=== PATIENT | female | born 1945 | race Caucasian/White ===

== ENCOUNTER 2017-01-04 07:15 | Inpatient (IN) | payer MEDICARE, OTHER ==
[~2017-01-04] VITALS: Ht 152.4 cm; Wt 51.0 kg
[~2017-01-04 07:15] MED LIST: ACID1TAB14 PO; AMLO5TAB4 PO; AUG875 PO; Acetaminophen PO; BENA10TA48 PO; ESCI10TA PO; FAMO-95 PO; FOLI-49 PO; GLIP5TAB13 PO; HYDR-762 PO; METF500T4 PO; METO-429 PO; MULT-761 PO; OLAN2.5T4 PO; THIA100T10 PO; TRAM50TA2 NGT
[2017-01-04] MEDS ORDERED: ONDANSETRON 4 MG INJ IV STA (07:52)
[2017-01-04] MEDS ORDERED: HYDROmorphONE 1 MG/ML SYG IV STA (07:52)
[2017-01-04] MEDS ORDERED: METF1000 PO (07:55)
[2017-01-04] MEDS ORDERED: DOCU-159 PO (07:57)
[2017-01-04] MEDS ORDERED: ASPI-664 PO (07:57)
[2017-01-04] MEDS ORDERED: CHOL100062 PO (07:57)
[2017-01-04] MEDS ORDERED: BISA10SU55 RC (07:58)
[2017-01-04] MEDS ORDERED: IBUP400T22 PO (07:58)
[2017-01-04] MEDS ORDERED: MAGN400T27 PO (07:59)
[2017-01-04] MEDS ORDERED: MAGN400O4 PO (08:00)
[2017-01-04] MEDS ORDERED: MEMA10TA16 PO (08:00)
[2017-01-04] MEDS ORDERED: CALC1TAB30 PO (08:01)
[2017-01-04] MEDS ORDERED: PANT40TA3 PO (08:01)
[2017-01-04] MEDS ORDERED: RISP2TAB3 PO (08:02)
[2017-01-04] MEDS ORDERED: PARO20TA58 PO (08:02)
[2017-01-04] MEDS ORDERED: RISP1TAB3 PO (08:02)
[2017-01-04] MEDS ORDERED: LINA5TAB PO (08:03)
[2017-01-04] MEDS ORDERED: ACET-2047 PO (08:03)
[2017-01-04] MEDS ORDERED: LORAZEPAM 2 MG INJ ONE (08:18)
[2017-01-04 08:26] LABS: ADD SCAN DIFF NO
[2017-01-04 08:30] LABS: BASOPHIL # 0.1 10^3/ul (0.0-0.1); EOSINOPHILS # 0.3 10^3/ul (0.0-0.5); HEMATOCRIT 32.3 % (37.0-47.0); LYMPHOCYTES # 2.6 10^3/ul (0.8-2.9); LYMPHOCYTES % 24.5 % (15.0-51.0); MEAN CORPUSCULAR HEMOGLOBIN 31.8 pg (29.0-33.0); MEAN CORPUSCULAR HGB CONC 34.1 g/dl (32.0-37.0); MEAN CORPUSCULAR VOLUME 93.4 fl (82.0-101.0); MONOCYTE # 1.2 10^3/ul (0.3-0.9); MONOCYTES % 10.9 % (0.0-11.0); NEUTROPHIL # 6.4 10^3/ul (1.6-7.5); NEUTROPHILS % 60.4 % (39.0-77.0); PLATELET COUNT 325 10^3/UL (140-415); RED BLOOD COUNT 3.46 10^6/ul (4.20-5.40); RED CELL DISTRIBUTION WIDTH 13.4 % (11.5-14.5); WHITE BLOOD COUNT 10.6 10^3/ul (4.8-10.8)
[2017-01-04] MEDS ORDERED: LORAZEPAM 2 MG INJ IV ONE ×2 (08:30→11:30)
--- NOTE | 2017-01-04 08:52 | RADRPT ---
PROCEDURE: XR Left foot. CLINICAL INDICATION: Left foot pain, swelling, trauma, wounds TECHNIQUE: Three views of the left foot were obtained. COMPARISON: No prior studies are available for comparison. FINDINGS: The bones are osteopenic. There is no definite acute fracture. There is diffuse soft tissue swelli ng. There are vascular calcifications. Nonspecific linear density along the lateral aspect of the third digit may be within or overlying th e soft tissues. IMPRESSION: 1. Diffuse osteopenia and soft tissue swelling. 2. No definite radiographic evidence of acute fracture or osteomyelitis though there is concern for osteomyelitis MRI is recommended for further evaluation. 3. Nonspecific 6 mm linear density projecting between the third and fourth toes may be a within or overlying the soft tissues. RPTAT: UU .Gerson Ware MD, Date Time Electronically viewed and signed by .Gerson Ware MD, on 01/04/2017 08:52 .K/
[2017-01-04 08:53] LABS: INR 0.97; PROTIME 12.9 Sec (12.2-14.2)
[2017-01-04 08:54] LABS: PARTIAL THROMBOPLASTIN TIME 30.3 Sec (25.0-35.0)
[2017-01-04 09:06] LABS: ALBUMIN 5.1 g/dl (3.3-4.9); ALBUMIN/GLOBULIN RATIO 1.45; BILIRUBIN,INDIRECT 0.4 mg/dl (0-1.1); BILIRUBIN,TOTAL 0.4 mg/dl (0.2-1.3); CALCIUM 10.2 mg/dl (8.4-10.2); CREATININE 0.87 mg/dl (0.44-1.00); POTASSIUM 5.1 mmol/L (3.5-5.1); TOTAL PROTEIN 8.6 g/dl (6.1-8.1)
--- NOTE | 2017-01-04 09:37 | ERD ---
ER Documentation Chief Complaint Date/Time DATE: 01/04/17 TIME: 09:33 Chief Complaint from home due diabetic foot HPI This is a 21-year-old female who states she has had chronic pain in her left foot off and on for "a long time". She says that she is having pain this morning located in the toes more specifically in the left second and third toe. The patient has a chronic small ulcer in the medial aspect of the second toe. She has no pain in her groin thigh calf ankle or knee. Patient states she does not know why she has pain. The patient's is constant and sharp. No erythema no swelling no fever ROS All systems reviewed and are negative except as per history of present illness. Medications Home Meds Active Scripts Multivitamin (MULTI VITAMIN DAILY) 1 Each Tablet, 1 TAB PO DAILY for 30 Days, TAB Prov:BETI TUBBS 08/21/15 Reported Medications Acetaminophen* (Acetaminophen*) 650 Mg Tablet, 650 MG PO Q6H Y for PAIN AND OR ELEVATED TEMP, #30 TAB 01/04/17 Linagliptin (TRADJENTA) 5 Mg Tablet, 5 MG PO DAILY, TAB 01/04/17 Risperidone* (Risperidone*) 2 Mg Tablet, 2 MG PO QHS, TAB 01/04/17 Risperidone* (Risperidone*) 1 Mg Tablet, 1 MG PO QAM, TAB 01/04/17 Paroxetine Hcl* (Paxil*) 20 Mg Tablet, 20 MG PO DAILY, TAB 01/04/17 Pantoprazole* (Protonix*) 40 Mg Tablet.dr, 40 MG PO DAILY, TAB 01/04/17 Calcium Carbonate/Vitamin D3 (Os-Abraham 500-Vit D3 600 Caplet) 1 Each Tablet, 1 EACH PO DAILY, TAB 01/04/17 Memantine* (Namenda*) 10 Mg Tablet, 10 MG PO BID, #60 TAB 01/04/17 Magnesium Hydroxide* (Milk Of Magnesia*) 400 Mg/5 Ml Oral.susp, 30 ML PO QHS Y for CONSTIPATION, ML 01/04/17 Magnesium Oxide* (Mag-Oxide*) 400 Mg Tablet, 400 MG PO DAILY, TAB 01/04/17 Ibuprofen* (Motrin*) 400 Mg Tab, 400 MG PO Q8H Y for PAIN, TAB 01/04/17 Bisacodyl (Dulcolax) 10 Mg Supp.rect, 10 MG RC DAILY Y for CONSTIPATION, SUPP.RECT 01/04/17 Docusate Sodium* (Docusate Sodium*) 100 Mg Capsule, 100 MG PO DAILY, #30 CAP 01/04/17 Cholecalciferol* (Vitamin D3*) 1,000 Unit Tablet, 1000 UNIT PO DAILY, TAB 01/04/17 Aspirin (Low Dose Aspirin) 81 Mg Tablet.dr, 81 MG PO DAILY, #30 TAB 01/04/17 Metformin Hcl* (Metformin Hcl*) 1,000 Mg Tablet, 1000 MG PO WITH BREAKFAST DINNE , #30 TAB 01/04/17 Discontinued Reported Medications Glipizide* (Glipizide*) 5 Mg Tablet, 5 MG PO BID, TAB 08/11/15 Benazepril Hcl* (Benazepril Hcl*) 10 Mg Tablet, 10 MG PO DAILY, #30 TAB 08/11/15 Metformin* (Glucophage*) 500 Mg Tab, 1000 MG PO BID 02/16/12 Discontinued Scripts Lactobacillus Acidoph/Bulgaricus* (Floranex*) 1 Each Tablet, 1 TAB.CHEW PO BID for 14 Days, TAB.CHEW Prov:BETI TUBBS 08/21/15 Folic Acid* (Folic Acid*) 1 Mg Tablet, 1 MG PO DAILY for 30 Days, TAB Prov:BETI TUBBS 08/21/15 Thiamine* (Thiamine*) 100 Mg Tablet, 100 MG PO DAILY for 30 Days, TAB Prov:BETI TUBBS 08/21/15 Amoxicillin-Clavulanate K* (Augmentin*) 875 Mg Tab, 875 MG PO BID for 7 Days, TAB Prov:BETI TUBBS 08/21/15 Tramadol HCl (Tramadol HCl) 50 Mg Tab, 50 MG NGT Q6H Y for PAIN for 30 Days, TAB Prov:BETI TUBBS 08/21/15 Olanzapine* (Zyprexa*) 2.5 Mg Tab, 2.5 MG PO QHS for 30 Days, TAB Prov:BETI TUBBS 08/21/15 Metoprolol Tartrate* (Lopressor*) 50 Mg Tab, 50 MG PO BID for 30 Days, TAB Prov:BETI TUBBS 08/21/15 Famotidine* (Pepcid* AC) 20 Mg Tab, 20 MG PO DAILY for 30 Days, TAB Prov:BETI TUBBS 08/21/15 Escitalopram Oxalate* (Lexapro*) 10 Mg Tab, 10 MG PO QHS for 30 Days, TAB Prov:BETI TUBBS 08/21/15 Amlodipine Besylate* (Norvasc*) 5 Mg Tab, 5 MG PO Q12 for 30 Days, TAB Prov:BETI TUBBS 08/21/15 [Acetaminophen] 325 MG TAB No Conflict Check, 650 MG PO Q6H Y for PAIN LEVEL 1- 3 OR FEVER for 30 Days, TAB Prov:BETI TUBBS 08/21/15 Hydrocodone Bit-Acetaminophen* (Goshen*) 10-325 Mg Tablet, 1 TAB PO Q6 Y for PAIN , #20 TAB Prov:KARLI BISWAS MD 03/10/15 Allergies Allergies: Coded Allergies: codeine (Verified Allergy, Unknown, SWELLING, RASHES, 01/04/17) PMhx/Soc History of Surgery: Yes (S/P CHEST TUBE PLACEMENT 08-11-15) Anesthesia Reaction: No Hx Neurological Disorder: Yes (Dementia) Hx Respiratory Disorders: No Hx Cardiac Disorders: Yes (HTN) Hx Psychiatric Problems: No Hx Alcohol Use: Yes 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 Neck: Full range of motion. No meningismus, no lymphadenopathy. Resp: Clear to auscultation bilaterally, no wheezing, rhonchi, rales Cardio: Regular rate and rhythm, no murmurs, S1 S2 present Abd: Soft, non tender x 4, non distended. Normal bowel sounds, no guarding or rebound, no pulsitile abdominal masses or bruits Skin: No petechiae or rashes, no ecchymosis , no maculopapular rash Back: No midline or flank tenderness Ext: No cyanosis, or edema, FROM x 4, normal inspection, neurovascularly intact x 4, the left extremity is warm the foot is warm the toes are warm, the patient has fungal infections all toenails on the left, there is a dorsalis pedis pulse by Doppler, cannot palpate, strong pulse in the popliteal region of the left knee weak anterior tibialis left palpable Neur: Awake and alert, STR 5/5 x 4, sensation intact x 4, no focal findings, cerebellum intact Psych: Normal Mood and Affect Result Diagram: 01/04/1781401/04/1715 Results 24 hrs Laboratory Tests Test 01/04/17 08:15 White Blood Count 10.610^3/ul Red Blood Count 3.4610^6/ul Hemoglobin 11.0g/dl Hematocrit 32.3% Mean Corpuscular Volume 93.4fl Mean Corpuscular Hemoglobin 31.8pg Mean Corpuscular Hemoglobin Concent 34.1g/dl Red Cell Distribution Width 13.4% Platelet Count 39359^3/UL Mean Platelet Volume 12.0fl Neutrophils % 60.4% Lymphocytes % 24.5% Monocytes % 10.9% Eosinophils % 3.0% Basophils % 1.0% Nucleated Red Blood Cells % 0.0/100WBC Neutrophils # 6.410^3/ul Lymphocytes # 2.610^3/ul Monocytes # 1.210^3/ul Eosinophils # 0.310^3/ul Basophils # 0.110^3/ul Nucleated Red Blood Cells # 0.010^3/ul Prothrombin Time 12.9Sec Prothrombin Time Ratio 1.0 INR International Normalized Ratio 0.97 Activated Partial Thromboplast Time 30.3Sec Sodium Level 136mmol/L Potassium Level 5.1mmol/L Chloride Level 103mmol/L Carbon Dioxide Level 25mmol/L Anion Gap 13 Blood Urea Nitrogen 11mg/dl Creatinine 0.87mg/dl Glucose Level 158mg/dl Calcium Level 10.2mg/dl Total Bilirubin 0.4mg/dl Direct Bilirubin 0.00mg/dl Indirect Bilirubin 0.4mg/dl Aspartate Amino Transf (AST/SGOT) 41IU/L Alanine Aminotransferase (ALT/SGPT) 19IU/L Alkaline Phosphatase 79IU/L Total Protein 8.6g/dl Albumin 5.1g/dl Globulin 3.50g/dl Albumin/Globulin Ratio 1.45 Current Medications Medications (Trade) Dose Ordered Sig/Lynn Route PRN Reason Start Time Stop Time Status Last Admin Dose Admin Hydromorphone HCl (Dilaudid) 1 mg ONCE STAT IV 01/04/17 07:52 01/04/17 07:58 DC 01/04/17 08:13 Ondansetron HCl (Zofran Inj) 4 mg ONCE STAT IV 01/04/17 07:52 01/04/17 07:58 DC 01/04/17 08:12 Lorazepam (Ativan) 1 mg ONCE ONCE IV 01/04/17 08:30 01/04/17 08:31 DC 01/04/17 08:22 Lorazepam (Ativan) 2 mg STK-MED ONCE .ROUTE 01/04/17 08:18 01/04/17 08:19 DC Enoxaparin Sodium (Lovenox) 60 mg ONCE SC 01/04/17 11:00 01/04/17 23:00 01/04/17 11:00 Lorazepam (Ativan) 0.5 mg ONCE ONCE IV 01/04/17 11:30 01/04/17 11:31 DC 01/04/17 11:35 Procedures/MDM PROCEDURE: XR Left foot. CLINICAL INDICATION: Left foot pain, swelling, trauma, wounds TECHNIQUE: Three views of the left foot were obtained. COMPARISON: No prior studies are available for comparison. FINDINGS: The bones are osteopenic. There is no definite acute fracture. There is diffuse soft tissue swelling. There are vascular calcifications. Nonspecific linear density along the lateral aspect of the third digit may be within or overlying the soft tissues. IMPRESSION: 1. Diffuse osteopenia and soft tissue swelling. 2. No definite radiographic evidence of acute fracture or osteomyelitis though there is concern for osteomyelitis MRI is recommended for further evaluation. 3. Nonspecific 6 mm linear density projecting between the third and fourth toes may be a within or overlying the soft tissues. RPTAT: UU .Gerson Ware MD, MD Date Time Electronically viewed and signed by .Gerson Ware MD, MD on 01/04/2017 08: 52 .K/ CC: JOLANTA HERNÁNDEZ DO PROCEDURE: CT Abdomen and Pelvis with contrast. CLINICAL INDICATION: Left lower quadrant pain and lower GI bleeding. TECHNIQUE: CT scan of the abdomen and pelvis with contrast was performed on a multi-detector high-resolution CT scanner. The patient was scanned following the uncomplicated intravenous administration of 100 cc of Omnipaque 300. Coronal and sagittal reformatted images were obtained from the axial source images. Images were reviewed on a high-resolution PACS workstation. The total exam CTDI equals 23.38 mGy and the total exam DLP equals 1430.23 mGy-cm. One or more of the following dose reduction techniques were used: Automated exposure control. Adjustment of the mA and/or kV according to patient size. Use of iterative reconstruction technique. COMPARISON: CT abdomen and pelvis 03/08/2014 FINDINGS: CT abdomen: The lung bases are clear. The heart size is normal, without pericardial thickening or effusion. The liver is normal in size and density without focal mass or intrahepatic biliary dilatation. The spleen is normal in size and homogeneous in density. The stomach is partially collapsed, but is grossly unremarkable. The pancreas as visualized is normal. The gallbladder is unremarkable. There is no evidence for biliary dilatation. The adrenal glands are symmetric and normal. The kidneys are symmetrically unremarkable as well. No renal calculus or obstructive uropathy or mass lesion is seen. The aorta is of normal caliber. There is mild aortic atherosclerosis. There is no retroperitoneal lymphadenopathy. The mikel hepatis region is clear. CT pelvis: The small bowel loops situated within the pelvis are unremarkable. The pelvic organs are normal. There is approximately 2 cm cystic lesion in the left adnexa , unchanged. There is mild wall thickening of the proximal sigmoid colon with increased vascularity in the surrounding sigmoid mesocolon and small lymph nodes. There is also suggestion of mild mucosal hyperenhancement in the rectosigmoid junction. No mass, lymphadenopathy, or free fluid is seen. The bladder is normal. The surrounding osseous structures are unremarkable. No osteolytic or osteoblastic lesion is detected. IMPRESSION: 1. Mild wall thickening of the proximal sigmoid colon with adjacent increased vascularity and fatty stranding in keeping with nonspecific infectious/ inflammatory colitis. Probable involvement of the rectosigmoid junction. No diverticulosis of the colon. 2. Mild aortic atherosclerosis. 3. Unchanged 2 cm cystic lesion in the left adnexa. RPTAT: BB .Miles Harvey MD, MD Date Time Electronically viewed and signed by .Miles Harvey MD, MD on 01/04/2017 10:23 .O/ CC: JOLANTA HERNÁNDEZ DO Discussed the above vascular study with the radiologist. Says the patient likely needs a runoff study because likely has occlusions bilaterally Patient lives at home with her family and is quite demented and is in need of higher level of care regarding her activities of daily living. The patient was evaluated by social work and was seen that the patient needs to be admitted to the hospital for placement into a penitentiary as a social media assistant cannot place the patient directly from the emergency room. I will admit the patient for runoff study of the legs as well as social admission for placement into a nursing facility Departure Diagnosis: Primary Impression: Claudication of lower extremity Additional Impression: Dementia Dementia type: unspecified type Dementia behavioral disturbance: without behavioral disturbance Qualified Code: F03.90 - Dementia without behavioral disturbance, unspecified dementia type Condition: Stable JOLANTA HERNÁNDEZ DO January 04, 2017 09:37
--- NOTE | 2017-01-04 10:47 | RADRPT ---
PROCEDURE: US Lower extremity arterial. CLINICAL INDICATION: Diabetic, left second toe ulcer, decreased pulses in the left lower extremity TECHNIQUE: Multiple sonographic images of the bilateral lower extremity arteries were obtained uti lizing grayscale, color-flow and doppler imaging. The images were reviewed on a PACS workstation. COMPARISON: None. FINDINGS: There is no significant calcific plaque. Velocities and waveforms were obtained as described below. RIGHT LEG: Right common femoral artery: 66 cm/s; triphasic waveforms Right profunda femoral artery: 61 cm/s; triphasic waveforms Right proximal superficial femoral artery: 54 cm/s; triphasic waveforms Right mid superficial femoral artery: 53 cm/s; triphasic waveforms Right distal superficial femoral artery: 65 cm/s; triphasic waveforms Right popliteal artery: 42 cm/s; triphasic waveforms Right posterior tibial artery: 56 cm/s; biphasic waveforms Right dorsalis pedis artery: 18 cm/s; monophasic and dampened waveforms LEFT LEG: Left common femoral artery: 81 cm/s; triphasic waveforms Left profunda femoral artery: 43 cm/s; triphasic waveforms Left proximal superficial femoral artery: 68 cm/s; triphasic waveforms Left mid superficial femoral artery: 69 cm/s; triphasic waveforms Left distal superficial femoral artery: 78 cm/s; triphasic waveforms Left popliteal artery: 81 cm/s; triphasic waveforms Left posterior tibial artery: 43 cm/s; biphasic waveforms Left dorsalis pedis artery: 19 cm/s; monophasic and dampened waveforms Calcifications are noted in bilateral superficial femoral arteries. RPTAT: AA IMPRESSION: Monophasic dampened wave forms in bilateral dorsalis pedis arteries as well as biphasic waveforms in the bilateral posterior tibial arteries suggest a high-grade stenosis and possibly occlusion of the distal popliteal and proximal infrapopliteal arteries. Atherosclerotic calcifications are noted in bilateral superficial femoral arteries. A CTA runoff study is recommended for further evaluation. Physician Edinson Date Time Electronically viewed and signed by Physician Edinson on 01/04/2017 10:46 /
[2017-01-04] MEDS ORDERED: ENOXAPARIN 60 MG/0.6 ML SYG SC SCH (11:00)
--- NOTE | 2017-01-04 13:53 | HP ---
Date/Time of Note Date/Time of Note DATE: 01/04/17 TIME: 13:53 Assessment/Plan VTE Prophylaxis VTE Prophylaxis Intervention: LMWH, SCD's Lines/Catheters IV Catheter Type (from Nrsg): Saline Lock Assessment/Plan Assessment/Plan 71 yo F with dementia, DM2, L toe ulcer brought in for toe ulcer and placement #toe ulcer: -CTAngio ordered as per radiology rec. Consider discussion with vascular surgery pending results -wound care cs -cont home asa #dementia with h/o agitation cont home psychoactive meds check TSH, b12, a1c #DM2: hold home oral agents accuchecks and SSI #placement: sw consulted #FEN: DM diet #prophx: SCDs and LMWH HPI/ROS Admit Date/Time Admit Date/Time Hx of Present Illness of note, unable to obtain much hx from patient 2/2 advanced dementia hx obtained from granddaughter paige, phone # [phone] 71 yo F with pmhx dementia, DM2, ?schizophrenia brought in by family for placement and L 2nd toe ulcer. Per granddaughter, pt has been living SNFs for the past few years. Initially in [facility], more recently transferred to [facility] in [facility] as previous facilities were unable to manage her level of aggression. Last week family brought patient home as they were concerned about the care she was getting. Pt has been getting daily nursing visits through ?[facility]? however the vast majority of her care has been provided by family A small area of discoloration was noted on pt's 2nd L toe shortly after she was brought home. Home health org diagnosed a ?bone infection? and rx'ed 3 days of IV abx followed by 3 days of PO abx (of note, I was unable to reach the [facility] to verify this information). Over the past week toe lesion has been darkening and patient has been complaining of increased pain. Also family reports they are unable to care for her at home 2/2 her advanced dementia. When I encountered the patient in the ER, she was sitting up on her gurney, responded "yes" to all questions in both Lao and Ukrainian and was crying at times. Unable to obtain PMHx/PSHx/ROS/Allergies/Fam Hx from pt 2/2 dementia Home meds as per EMR PMH/Family/Social Social History Smoking Status: Former smoker Exam/Review of Systems Vital Signs Vitals Vital Signs Date Time Temp Pulse Resp B/P Pulse Ox O2 Delivery O2 Flow Rate FiO2 01/04/17 13:22 99 18 176/83 100 Nasal Cannula 4.0 01/04/17 07:25 98.1 Exam Exam elderly woman sitting up in rney EOMI moves exts freely edentulous no gross thyromegaly no mrg lungs clear abd soft no rashes L 2nd toe with 3 cm black eschar on lateral side of toe. Weakly palpable DP pulse on L foot (dopplered by ED) Labs Result Diagram: 01/04/1715 01/04/1715 Medications Medications Current Medications Enoxaparin Sodium (Lovenox) 60 mg ONCE SC Last administered on 01/04/17t 11:00 ; Admin Dose 60 MG; Start 01/04/17 at 11:00; Stop 01/04/17 at 23:00 Procedures Procedures arterial testing reviewed GIORGIO SANCHEZ MD January 04, 2017 13:53
[2017-01-04] MEDS ORDERED: ACETAMINOPHEN 325 MG TAB PO PRN ×2 (14:00→17:00)
[2017-01-04] MEDS ORDERED: ONDANSETRON 4 MG INJ IV PRN (14:00)
[2017-01-04 15:10] VITALS: Ht 152.4 cm; Wt 51.0 kg
[2017-01-04 15:17] VITALS: BP 166/83; PULSE 85; RESP 18
[2017-01-04] MEDS ORDERED: BISACODYL 10 MG SUPP PR PRN (17:00)
[2017-01-04] MEDS ORDERED: NACL 0.9% 3 ML SYG IV SCH (17:00)
[2017-01-04] MEDS ORDERED: MAGNESIUM HYDROXIDE 30ML CUP PO PRN (17:00)
[2017-01-04] MEDS ORDERED: GLUCOSE GEL 15 GRAM TUBE BUCCAL PRN (17:30)
[2017-01-04] MEDS ORDERED: DEXTROSE 50% 50 ML SYRINGE IV PRN ×2 (17:30)
[2017-01-04] MEDS ORDERED: GLUCOSE GEL 15 GRAM TUBE PO PRN ×2 (17:30)
[2017-01-04] MEDS ORDERED: GLUCAGON 1 MG INJ IM PRN (17:30)
[2017-01-04 17:42] VITALS: BP 175/76
[2017-01-04] MEDS: INSULIN ASPART [NOVOLOG] 3 ML PEN SC SCH ×2 (17:50→21:00)
[2017-01-04] MEDS: AMLODIPINE 10 MG TAB PO SCH (18:25)
[2017-01-04 19:18] VITALS: BP 159/86; RESP 20
[2017-01-04] MEDS: IBUPROFEN 400 MG TAB PO PRN (19:53)
[2017-01-04] MEDS ORDERED: RISPERIDONE 2 MG TAB PO SCH (21:00)
[2017-01-04] MEDS: MEMANTINE 10 MG TAB PO SCH (21:01)
[2017-01-04] MEDS: RISPERIDONE 1 MG TAB PO SCH (21:01)
[2017-01-05] MEDS: ACCU-CHEK XX SCH (02:00)
[2017-01-05 05:35] LABS: CALCIUM 10.6 mg/dl (8.4-10.2); CREATININE 0.74 mg/dl (0.44-1.00); POTASSIUM 4.1 mmol/L (3.5-5.1)
[2017-01-05] MEDS: PANTOPRAZOLE (EC) 40 MG TAB PO SCH (05:51)
[2017-01-05 06:05] LABS: THYROID STIMULATING HORMONE 0.853 MIU/L (0.465-4.680)
[2017-01-05] MEDS: INSULIN ASPART [NOVOLOG] 3 ML PEN SC SCH ×4 (07:50→20:37)
[2017-01-05] MEDS: MAGNESIUM OXIDE 400 MG TAB PO SCH (09:07)
[2017-01-05] MEDS: AMLODIPINE 10 MG TAB PO SCH (09:07)
[2017-01-05] MEDS: ASPIRIN (EC) 81 MG TAB PO SCH (09:07)
[2017-01-05] MEDS: MULTIVITAMINS THERAPEUTIC TAB PO SCH (09:07)
[2017-01-05] MEDS: DOCUSATE SODIUM 100 MG CAP PO SCH (09:07)
[2017-01-05] MEDS: CHOLECALCIFEROL 1,000 UNIT TAB PO SCH (09:08)
[2017-01-05] MEDS: MEMANTINE 10 MG TAB PO SCH ×2 (09:08→20:37)
[2017-01-05 09:10] VITALS: BP 157/70; RESP 18
[2017-01-05] MEDS: RISPERIDONE 1 MG TAB PO SCH ×2 (09:15→20:38)
[2017-01-05] MEDS: PAROXETINE 20 MG TAB PO SCH (09:16)
[2017-01-05] MEDS: ENOXAPARIN 40 MG/0.4 ML SYG SC SCH (09:18)
--- NOTE | 2017-01-05 12:00 | PN ---
Date/Time of Note Date/Time of Note DATE: 01/05/17 TIME: 11:59 Assessment/Plan VTE Prophylaxis VTE Prophylaxis Intervention: LMWH Lines/Catheters IV Catheter Type (from Nrsg): Saline Lock Urinary Cath still in place: No Assessment/Plan Assessment/Plan 71 yo F with dementia, DM2, L toe ulcer brought in for toe ulcer and placement #toe ulcer: -CTAngio ordered as per radiology rec. Consider discussion with vascular surgery pending results -wound care cs -cont home asa #dementia with h/o agitation cont home psychoactive meds check TSH, b12, a1c #DM2: hold home oral agents accuchecks and SSI #placement: sw consulted #FEN: DM diet #prophx: SCDs and LMWH Subjective 24 Hr Interval Summary Free Text/Dictation Pt appears comfortable when seen in her room this morning. CTA still pending Exam/Review of Systems Vital Signs Vitals Vital Signs Date Time Temp Pulse Resp B/P Pulse Ox O2 Delivery O2 Flow Rate FiO2 01/05/17 09:10 98.2 79 18 157/70 100 01/04/17 15:17 Room Air 01/04/17 14:32 3.0 Intake and Output 01/04/17 01/04/17 01/05/17 14:59 22:59 06:59 Intake Total 120 ml 360 ml Balance 120 ml 360 ml Exam nad, sitting up in bed, dozing quietly no mrg lungs clear abd soft no le edema L 2nd toe ulcer unchanged Results Result Diagram: 01/04/17 0815 01/05/17 0441 Results 24 hrs Laboratory Tests Test 01/04/17 17:48 01/04/17 19:00 01/04/17 21:03 01/05/17 04:41 Bedside Glucose 125 163 Hemoglobin A1c 7.2 H Sodium Level 140 Potassium Level 4.1 Chloride Level 103 Carbon Dioxide Level 29 Anion Gap 12 Blood Urea Nitrogen 8 Creatinine 0.74 Glucose Level 120 Calcium Level 10.6 H Vitamin B12 Level 558 Thyroid Stimulating Hormone (TSH) 0.853 Test 01/05/17 08:22 Bedside Glucose 122 Medications Medications Current Medications Acetaminophen (Tylenol Tab) 650 mg Q6H PRN PO PAIN AND OR ELEVATED TEMP; Start 01/04/17 at 17:00 Aspirin (Halfprin) 81 mg DAILY PO Last administered on 01/05/17t 09:07; Admin Dose 81 MG; Start 01/05/17 at 09:00 Bisacodyl (Dulcolax Supp) 10 mg DAILY PRN SC CONSTIPATION; Start 01/04/17 at 17 :00 Cholecalciferol (Vitamin D) 1,000 unit DAILY PO Last administered on 01/05/17 09:08; Admin Dose 1,000 UNIT; Start 01/05/17 at 09:00 Docusate Sodium (Colace) 100 mg DAILY PO Last administered on 01/05/17 09:07; Admin Dose 100 MG; Start 01/05/17 at 09:00 Ibuprofen (Motrin) 400 mg Q8H PRN PO PAIN Last administered on 01/04/17 19:53 ; Admin Dose 400 MG; Start 01/04/17 at 17:00 Magnesium Hydroxide (Milk Of Mag) 30 ml QHS PRN PO CONSTIPATION; Start at 17:00 Magnesium Oxide (Mag-Ox 400) 400 mg DAILY PO Last administered on 01/05/17 09: 07; Admin Dose 400 MG; Start 01/05/17 at 09:00 Memantine (Namenda) 10 mg BID PO Last administered on 01/05/17 09:08; Admin Dose 10 MG; Start 01/04/17 at 21:00 Multivitamins Therapeutic (Theragran) 1 tab DAILY PO Last administered on 09:07; Admin Dose 1 TAB; Start 01/05/17 at 09:00 Pantoprazole (Protonix Tab) 40 mg DAILY@06 PO Last administered on 01/05/17 05: 51; Admin Dose 40 MG; Start 01/05/17 at 06:00 Paroxetine HCl (Paxil) 20 mg DAILY PO Last administered on 01/05/17 09:16; Admin Dose 20 MG; Start 01/05/17 at 09:00 Risperidone (Risperdal) 1 mg QAM PO Last administered on 01/05/17 09:15; Admin Dose 1 MG; Start 01/05/17 at 09:00 Enoxaparin Sodium (Lovenox) 40 mg DAILY SC Last administered on 01/05/17 09:18 ; Admin Dose 40 MG; Start 01/05/17 at 09:00 Diagnostic Test (Pha) (Accu-Chek) 1 ea 02 XX ; Start 01/05/17 at 02:00 Miscellaneous Information 1 ea NOTE XX ; Start 01/04/17 at 17:30 Glucose (Glutose) 15 gm Q15M PRN PO DECREASED GLUCOSE; Start 01/04/17 at 17:30 Glucose (Glutose) 22.5 gm Q15M PRN PO DECREASED GLUCOSE; Start 01/04/17 at 17: 30 Dextrose (D50w Syringe) 25 ml Q15M PRN IV DECREASED GLUCOSE; Start 01/04/17 at 17:30 Dextrose (D50w Syringe) 50 ml Q15M PRN IV DECREASED GLUCOSE; Start 01/04/17 at 17:30 Glucagon (Glucagen) 1 mg Q15M PRN IM DECREASED GLUCOSE; Start 01/04/17 at 17:30 Glucose (Glutose) 15 gm Q15M PRN BUCCAL DECREASED GLUCOSE; Start 01/04/17 at 17 :30 Risperidone (Risperdal) 2 mg HS PO Last administered on 01/04/17 21:01; Admin Dose 2 MG; Start 01/04/17 at 21:00 Amlodipine Besylate (Norvasc) 10 mg DAILY PO Last administered on 01/05/17 09: 07; Admin Dose 10 MG; Start 01/04/17 at 18:00 Procedures Procedures a1c 7.2, acceptable given age b12 and tsh wnl GIORGIO SANCHEZ MD Jan 05, 2017 12:00
[2017-01-05] MEDS: IBUPROFEN 400 MG TAB PO PRN (16:38)
[2017-01-05 19:41] VITALS: BP 138/72; RESP 18
[2017-01-05] MEDS: ACETAMINOPHEN 325 MG TAB PO PRN (21:27)
[2017-01-05] MEDS ORDERED: LORAZEPAM 0.5 MG TAB PO SCH (22:16)
[2017-01-05] MEDS ORDERED: KETOROLAC 15 MG INJ IV PRN (22:30)
[2017-01-06] MEDS: ACCU-CHEK XX SCH (02:00)
[2017-01-06] MEDS: PANTOPRAZOLE (EC) 40 MG TAB PO SCH (06:17)
[2017-01-06] MEDS ORDERED: IBUPROFEN 200 MG TAB PO ONE (06:30)
[2017-01-06] MEDS ORDERED: LIDOCAINE 1% (MPF) 5 ML VIAL SC ONE (07:00)
[2017-01-06 08:11] VITALS: BP 121/61; PULSE 77; RESP 18
[2017-01-06] MEDS: ENOXAPARIN 40 MG/0.4 ML SYG SC SCH ×2 (09:00→14:01)
[2017-01-06] MEDS: ASPIRIN (EC) 81 MG TAB PO SCH ×2 (09:00→13:50)
[2017-01-06] MEDS: AMLODIPINE 10 MG TAB PO SCH ×2 (09:00→13:53)
[2017-01-06] MEDS: INSULIN ASPART [NOVOLOG] 3 ML PEN SC SCH ×4 (09:16→21:10)
[2017-01-06] MEDS: DOCUSATE SODIUM 100 MG CAP PO SCH (10:31)
--- NOTE | 2017-01-06 11:55 | PN ---
Date/Time of Note Date/Time of Note DATE: 01/06/17 TIME: 11:54 Assessment/Plan VTE Prophylaxis VTE Prophylaxis Intervention: SCD's Lines/Catheters IV Catheter Type (from Nrsg): Saline Lock Urinary Cath still in place: No Assessment/Plan Assessment/Plan 71 yo F with dementia, DM2, L toe ulcer brought in for toe ulcer and placement #toe ulcer: -CTAngio ordered as per radiology rec. Consider discussion with vascular surgery pending results -MRI to eval for OM as per XR note rec -wound care cs -cont home asa #dementia with h/o agitation cont home psychoactive meds #DM2: hold home oral agents accuchecks and SSI #placement: sw consulted #FEN: DM diet #prophx: SCDs and LMWH Subjective 24 Hr Interval Summary Free Text/Dictation Pt more agitated this AM, c/o pain in L toe RN unable to obtain PIV for CTA, will need PICC Exam/Review of Systems Vital Signs Vitals Vital Signs Date Time Temp Pulse Resp B/P Pulse Ox O2 Delivery O2 Flow Rate FiO2 01/06/17 08:11 97.7 77 18 121/61 97 Room Air 01/04/17 14:32 3.0 Intake and Output 01/05/17 01/05/17 01/06/17 15:00 23:00 07:00 Intake Total 120 ml 250 ml Output Total 600 ml Balance -480 ml 250 ml Exam sitting up in bed, crying at times no mrg lungs clear abd soft L toe ulcer unchanged, weakly palpable DP pulse no le edema Results Result Diagram: 01/04/17 0815 01/05/17 0441 Results 24 hrs Laboratory Tests Test 01/05/17 17:27 01/05/17 20:35 01/06/17 08:34 Bedside Glucose 257 H 271 H 150 Medications Medications Current Medications Acetaminophen (Tylenol Tab) 650 mg Q6H PRN PO PAIN AND OR ELEVATED TEMP Last administered on 01/05/17 21:27; Admin Dose 650 MG; Start 01/04/17 at 17:00 Aspirin (Halfprin) 81 mg DAILY PO Last administered on 01/05/17 09:07; Admin Dose 81 MG; Start 01/05/17 at 09:00 Bisacodyl (Dulcolax Supp) 10 mg DAILY PRN [place] CONSTIPATION; Start 01/04/17 at 17 :00 Cholecalciferol (Vitamin D) 1,000 unit DAILY PO Last administered on 01/05/17 09:08; Admin Dose 1,000 UNIT; Start 01/05/17 at 09:00 Docusate Sodium (Colace) 100 mg DAILY PO Last administered on 01/06/17 10:31; Admin Dose 100 MG; Start 01/05/17 at 09:00 Magnesium Hydroxide (Milk Of Mag) 30 ml QHS PRN PO CONSTIPATION; Start at 17:00 Magnesium Oxide (Mag-Ox 400) 400 mg DAILY PO Last administered on 01/05/17 09: 07; Admin Dose 400 MG; Start 01/05/17 at 09:00 Memantine (Namenda) 10 mg BID PO Last administered on 01/05/17 20:37; Admin Dose 10 MG; Start 01/04/17 at 21:00 Multivitamins Therapeutic (Theragran) 1 tab DAILY PO Last administered on 09:07; Admin Dose 1 TAB; Start 01/05/17 at 09:00 Pantoprazole (Protonix Tab) 40 mg DAILY@06 PO Last administered on 01/06/17 06: 17; Admin Dose 40 MG; Start 01/05/17 at 06:00 Paroxetine HCl (Paxil) 20 mg DAILY PO Last administered on 01/05/17 09:16; Admin Dose 20 MG; Start 01/05/17 at 09:00 Risperidone (Risperdal) 1 mg QAM PO Last administered on 01/05/17 09:15; Admin Dose 1 MG; Start 01/05/17 at 09:00 Enoxaparin Sodium (Lovenox) 40 mg DAILY SC Last administered on 01/05/17 09:18 ; Admin Dose 40 MG; Start 01/05/17 at 09:00 Diagnostic Test (Pha) (Accu-Chek) 1 ea 02 XX ; Start 01/05/17 at 02:00 Miscellaneous Information 1 ea NOTE XX ; Start 01/04/17 at 17:30 Glucose (Glutose) 15 gm Q15M PRN PO DECREASED GLUCOSE; Start 01/04/17 at 17:30 Glucose (Glutose) 22.5 gm Q15M PRN PO DECREASED GLUCOSE; Start 01/04/17 at 17: 30 Dextrose (D50w Syringe) 25 ml Q15M PRN IV DECREASED GLUCOSE; Start 01/04/17 at 17:30 Dextrose (D50w Syringe) 50 ml Q15M PRN IV DECREASED GLUCOSE; Start 01/04/17 at 17:30 Glucagon (Glucagen) 1 mg Q15M PRN IM DECREASED GLUCOSE; Start 01/04/17 at 17:30 Glucose (Glutose) 15 gm Q15M PRN BUCCAL DECREASED GLUCOSE; Start 01/04/17 at 17 :30 Risperidone (Risperdal) 2 mg HS PO Last administered on 01/05/17 20:38; Admin Dose 2 MG; Start 01/04/17 at 21:00 Amlodipine Besylate (Norvasc) 10 mg DAILY PO Last administered on 01/05/17 09: 07; Admin Dose 10 MG; Start 01/04/17 at 18:00 Ketorolac Tromethamine (Toradol) 15 mg Q6H PRN IV PAIN Last administered on 01/05 22:23; Admin Dose 15 MG; Start 01/05/17 at 22:30; Stop 01/06/17 at 22:30 Ibuprofen (Motrin) 400 mg Q8H PRN PO PAIN; Start 01/06/17 at 23:00 GIORGIO SANCHEZ MD Jan 06, 2017 11:55
--- NOTE | 2017-01-06 12:43 | RADRPT ---
PROCEDURE: US guidance for PICC line CLINICAL INDICATION: PICC line placement TECHNIQUE: Multiple real-time images were acquired of the patient's arm utilizing a high resolutio n transducer. This was performed by the PICC line nurse for venous access. COMPARISON: None FINDINGS: Ultrasound guidance for PICC line placement. IMPRESSION: Ultrasound guidance for PICC line placement. RPTAT: AA .Robert Walsh MD, MD Date Time Electronically viewed and signed by .Robert Walsh MD, on 01/06/2017 12:43 .S/
--- NOTE | 2017-01-06 12:44 | RADRPT ---
PROCEDURE: XR Chest. CLINICAL INDICATION: PICC line placement TECHNIQUE: Single frontal view of the chest was obtained COMPARISON: 08/18/2015 FINDINGS: There is a new left-sided PICC line in place with its tip overlying the upper right atrium. The heart is normal in size. There are mild chronic interstitial changes in the lung bases. There is no focal infiltrate. There is no pleural effusion or pneumothorax. RPTAT: AA IMPRESSION: New PICC line in appropriate position. .Robert Walsh MD, Date Time Electronically viewed and signed by .Robert Walsh MD, MD on 01/06/2017 12:44 .S/
[2017-01-06] MEDS ORDERED: SOD CHLORIDE 0.9% 100 ML ONE ×2 (13:45→14:52)
[2017-01-06] MEDS: PAROXETINE 20 MG TAB PO SCH (13:50)
[2017-01-06] MEDS: HYDROCODONE/APAP (10/325) TAB PO PRN (13:51)
[2017-01-06] MEDS: RISPERIDONE 1 MG TAB PO SCH ×2 (13:51→21:02)
[2017-01-06] MEDS: MAGNESIUM OXIDE 400 MG TAB PO SCH (13:51)
[2017-01-06] MEDS: CHOLECALCIFEROL 1,000 UNIT TAB PO SCH (13:51)
[2017-01-06] MEDS: MULTIVITAMINS THERAPEUTIC TAB PO SCH (13:52)
[2017-01-06] MEDS: MEMANTINE 10 MG TAB PO SCH ×2 (14:08→21:02)
[2017-01-06] MEDS ORDERED: IODIXANOL LOCM 100 ML BTL ONE (14:52)
[2017-01-06] MEDS ORDERED: IODIXANOL LOCM 50 ML BTL ONE (14:52)
--- NOTE | 2017-01-06 15:53 | RADRPT ---
PROCEDURE: CT angiogram of the abdomen and pelvis with bilateral lower extremity runoff and with 3 -D reconstructions CLINICAL INDICATION: f/u abnormal arterial studies for toe ulcer TECHNIQUE: CT angiogram of the abdomen and pelvis was performed on a multislice CT scanner . The patient was scanned after administration of intravenous contrast. Sagittal and coronal reformatted images were obtained from the axial source images. 3D MIP reformatted images were also created from the axial source images. DLP 827.92 mGycm CTDI vol 172.53, 6.01 mGy COMPARISON: Duplex sonogram of bilateral lower extremity arteries from 01/04/2017 FINDINGS: ANGIOGRAM FINDINGS: There is no acute dissection or aneurysm of the abdominal aorta. The celiac, SMA, and RUBI are widely patent. There is severe narrowing at the origin of the right renal artery. There is mild narrowing at the o rigin of the left renal artery. Bilateral common iliac arteries are widely patent. There are non-flow limiting circumferential athe rosclerotic calcifications of the bilateral internal and external iliac arteries. RIGHT LOWER EXTREMITY: There are non-flow limiting atherosclerotic calcifications of the proximal right common femoral niesha ry which is otherwise widely patent. There are circumferential atherosclerotic calcifications of the profunda artery and its branches pro ducing mild narrowing. There are circumferential atherosclerotic calcifications throughout the superficial femoral artery w hich produce mild narrowing. There are circumferential atherosclerotic calcifications of the popliteal artery which produce mild to moderate narrowing, particularly proximally. There is one-vessel uninterrupted runoff to the right ankle from the peroneal artery. There is shor t segment occlusion and reconstitution of the right anterior tibial artery in the midcalf (series 3, image 452). There are dense circumferential atherosclerotic calcifications of the right posterior tibial artery which produce multifocal severe narrowing and possibly occlusion although evaluation is limited due to the dense nature of the calcifications and attenuation of the contrast bolus. LEFT LOWER EXTREMITY: There are non-flow limiting circumferential atherosclerotic calcifications of the left common femora l artery which is patent. There are circumferential non-flow limiting atherosclerotic calcifications of the left profunda niesha ry and its branches. There are circumferential non-flow limiting atherosclerotic calcifications of the left superficial f emoral artery and above-knee popliteal artery which are patent. There is short segment moderate narrowing of the mid popliteal artery. The below-knee popliteal art lexie is widely patent. The peroneal artery is widely patent to the ankle. There are circumferential atherosclerotic calcif ications of the anterior posterior tibial arteries as well as attenuation of the contrast bolus whic h limits evaluation of these vessels however there is a complete occlusion of the posterior tibial a rtery just above the ankle on series 3, image 484. ANCILLARY FINDINGS: The patient is status post cholecystectomy with dilatation of the common bile duct to 1.3 cm consist ent with post cholecystectomy change. There is a tiny fat - containing umbilical hernia. There are serpiginous calcifications in the left greater than right lateral tibial plateaus, likely due to bone infarcts. A healed midline abdominal wound is noted. There is dense stool throughout the descending and sigmoid colon. IMPRESSION: Severe narrowing at the origin of the right renal artery. Correlation with blood pressure for renov ascular hypertension is recommended. Dense circumferential atherosclerotic calcifications are identified in bilateral internal and plate and frame filter operator al iliac arteries as well as the arteries of the thighs and calves. Mild to moderate narrowing of the right popliteal artery with good one-vessel uninterrupted runoff t o the right ankle from the peroneal artery, as above. Short segment moderate narrowing of the mid left popliteal artery with one-vessel uninterrupted runo ff to the left ankle from the peroneal artery. Calcifications and attenuation of the contrast bolus in the left anterior posterior tibial arteries limit evaluation although there is a complete occlus ion due to calcifications in the distal left posterior tibial artery. Status post cholecystectomy. Likely bone infarcts in bilateral tibial plateaus, as above. Dense stool throughout the descending and sigmoid colon. Correlation for constipation is recommende eufemia RPTAT: EE Physician [place] Date Time Electronically viewed and signed by Del De Dios Physician on 01/06/2017 15:53 SUNSHINE
[2017-01-06] MEDS: IBUPROFEN 400 MG TAB PO PRN (16:00)
[2017-01-06 19:38] VITALS: BP 109/77; RESP 18
--- NOTE | 2017-01-06 20:55 | RADRPT ---
PROCEDURE: MRI OF THE LEFT FOOT. CLINICAL INDICATION: Evaluate for osteomyelitis of the second toe. TECHNIQUE: Multiple MRI images of the left foot were obtained in multiple planes utilizing multipl e pulse sequences. Images were interpreted on the high-resolution PACS system. COMPARISON: 01/04/2017 radiographs FINDINGS: 1st ray: There is no acute fracture or bone marrow edema. There are cystic changes within the media l aspect of the first metatarsal head. There is partial thickness chondral loss within the first me tatarsophalangeal joint with mild osseous spurring and slight hallux valgus deformity. The collater al ligaments are intact. There is no significant joint effusion. There is also partial thickness chondral loss with mild osseous spurring within the first interphala ngeal joint. 2nd ray: There is diffuse edema within the subcutaneous soft tissues around the second middle and di stal phalanges. There is mild osseous spurring and bone marrow edema at the second distal interphal angeal joint but no abnormal T1 signal. No acute fracture is visualized. No bony destructive engel es are present. The proximal interphalangeal joint is intact. The second metatarsophalangeal joint is unremarkable. The collateral ligaments are intact. The cho ndral surfaces are preserved. No significant joint effusion is present. 3rd ray through 5th ray: There is no acute fracture or bone marrow edema. No evidence of osteomyeli tis is present. There is partial thickness chondral loss with osseous spurring within the distal in terphalangeal joints. The metatarsophalangeal joints are unremarkable. MIDFOOT: There is partial thickness chondral loss with osseous spurring within the tarsometatarsal j oints. There is more prominent high-grade chondral loss in part to bone involving the third tarsome tatarsal joint with osseous spurring, marrow edema, and subchondral cysts. The Lisfranc's ligament is intact. There is mild osseous spurring within the dorsal aspect of the naviculocuneiform joint w ith partial thickness chondral loss. Other findings: There is no Nair's neuroma. No plantar fibroma is visualized. The flexor and extensor tendons around the foot are unremarkable. Muscles around the foot are unrem arkable. RPTAT: ZZ IMPRESSION: 1. Diffuse edema within the subcutaneous soft tissues of the second toe surrounding the middle and distal phalanges but no evidence of osteomyelitis. Degenerative changes within the second distal in terphalangeal joint with mild marrow edema and osseous spurring. 2. 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 3. Osteoarthrosis of the tarsometatarsal joints more prominent involving the third tarsometatarsal joint with partial thickness chondral loss in part to bone with osseous spurring and marrow edema. .Joanne Morgan MD, MD Date Time Electronically viewed and signed by .Joanne Morgan MD, on 01/06/2017 20:55 .T/
[2017-01-07] MEDS: ACCU-CHEK XX SCH (02:00)
[2017-01-07] MEDS: PANTOPRAZOLE (EC) 40 MG TAB PO SCH (05:57)
[2017-01-07 08:27] VITALS: BP 142/65; RESP 20
[2017-01-07] MEDS: MAGNESIUM OXIDE 400 MG TAB PO SCH (08:51)
[2017-01-07] MEDS: CHOLECALCIFEROL 1,000 UNIT TAB PO SCH (08:51)
[2017-01-07] MEDS: ASPIRIN (EC) 81 MG TAB PO SCH (08:51)
[2017-01-07] MEDS: DOCUSATE SODIUM 100 MG CAP PO SCH (08:51)
[2017-01-07] MEDS: MULTIVITAMINS THERAPEUTIC TAB PO SCH (08:51)
[2017-01-07] MEDS: PAROXETINE 20 MG TAB PO SCH (08:51)
[2017-01-07] MEDS: RISPERIDONE 1 MG TAB PO SCH ×2 (08:51→20:49)
[2017-01-07] MEDS: AMLODIPINE 10 MG TAB PO SCH (08:51)
[2017-01-07] MEDS: MEMANTINE 10 MG TAB PO SCH ×2 (08:51→20:49)
[2017-01-07] MEDS: ENOXAPARIN 40 MG/0.4 ML SYG SC SCH (08:53)
[2017-01-07] MEDS: INSULIN ASPART [NOVOLOG] 3 ML PEN SC SCH ×4 (08:59→20:55)
--- NOTE | 2017-01-07 09:59 | PN ---
Date/Time of Note Date/Time of Note DATE: 01/07/17 TIME: 09:58 Assessment/Plan VTE Prophylaxis VTE Prophylaxis Intervention: SCD's Lines/Catheters IV Catheter Type (from Nrsg): PICC Line Central line still needed: No Urinary Cath still in place: No Assessment/Plan Assessment/Plan 71 yo F with dementia, DM2, L toe ulcer brought in for toe ulcer and placement #toe ulcer: -CTAngio done, consult to Dr Yusuf of vascular surgery -MRI neg for OM -wound care cs -cont home asa #dementia with h/o agitation cont home psychoactive meds #DM2: hold home oral agents accuchecks and SSI #placement: sw consulted #FEN: DM diet #prophx: SCDs and LMWH Subjective 24 Hr Interval Summary Free Text/Dictation Appears less uncomfortable this morning Exam/Review of Systems Vital Signs Vitals Vital Signs Date Time Temp Pulse Resp B/P Pulse Ox O2 Delivery O2 Flow Rate FiO2 01/07/17 08:27 98.5 85 20 142/65 97 01/06/17 08:11 Room Air 01/04/17 14:32 3.0 Intake and Output 01/06/17 01/06/17 01/07/17 15:00 23:00 07:00 Intake Total 1000 ml 700 ml Balance 1000 ml 700 ml Exam nad, sitting up in bed no mrg lungs clear abd soft L 2nd to ulcer unchanged MRI negative for OM Results Result Diagram: 01/04/17 0815 01/05/17 0441 Results 24 hrs Laboratory Tests Test 01/06/17 12:59 01/06/17 17:58 01/06/17 21:00 01/07/17 02:29 Bedside Glucose 204 194 263 H 134 Test 01/07/17 08:50 Bedside Glucose 164 Medications Medications Current Medications Acetaminophen (Tylenol Tab) 650 mg Q6H PRN PO PAIN AND OR ELEVATED TEMP Last administered on 01/05/17 21:27; Admin Dose 650 MG; Start 01/04/17 at 17:00 Aspirin (Halfprin) 81 mg DAILY PO Last administered on 01/07/17 08:51; Admin Dose 81 MG; Start 01/05/17 at 09:00 Bisacodyl (Dulcolax Supp) 10 mg DAILY PRN [place] CONSTIPATION; Start 01/04/17 at 17 :00 Cholecalciferol (Vitamin D) 1,000 unit DAILY PO Last administered on 01/07/17 08:51; Admin Dose 1,000 UNIT; Start 01/05/17 at 09:00 Docusate Sodium (Colace) 100 mg DAILY PO Last administered on 01/07/17 08:51; Admin Dose 100 MG; Start 01/05/17 at 09:00 Magnesium Hydroxide (Milk Of Mag) 30 ml QHS PRN PO CONSTIPATION; Start at 17:00 Magnesium Oxide (Mag-Ox 400) 400 mg DAILY PO Last administered on 01/07/17 08: 51; Admin Dose 400 MG; Start 01/05/17 at 09:00 Memantine (Namenda) 10 mg BID PO Last administered on 01/07/17 08:51; Admin Dose 10 MG; Start 01/04/17 at 21:00 Multivitamins Therapeutic (Theragran) 1 tab DAILY PO Last administered on 08:51; Admin Dose 1 TAB; Start 01/05/17 at 09:00 Pantoprazole (Protonix Tab) 40 mg DAILY@06 PO Last administered on 01/07/17 05: 57; Admin Dose 40 MG; Start 01/05/17 at 06:00 Paroxetine HCl (Paxil) 20 mg DAILY PO Last administered on 01/07/17 08:51; Admin Dose 20 MG; Start 01/05/17 at 09:00 Risperidone (Risperdal) 1 mg QAM PO Last administered on 01/07/17 08:51; Admin Dose 1 MG; Start 01/05/17 at 09:00 Enoxaparin Sodium (Lovenox) 40 mg DAILY SC Last administered on 01/07/17 08:53 ; Admin Dose 40 MG; Start 01/05/17 at 09:00 Diagnostic Test (Pha) (Accu-Chek) 1 ea 02 XX ; Start 01/05/17 at 02:00 Miscellaneous Information 1 ea NOTE XX ; Start 01/04/17 at 17:30 Glucose (Glutose) 15 gm Q15M PRN PO DECREASED GLUCOSE; Start 01/04/17 at 17:30 Glucose (Glutose) 22.5 gm Q15M PRN PO DECREASED GLUCOSE; Start 01/04/17 at 17: 30 Dextrose (D50w Syringe) 25 ml Q15M PRN IV DECREASED GLUCOSE; Start 01/04/17 at 17:30 Dextrose (D50w Syringe) 50 ml Q15M PRN IV DECREASED GLUCOSE; Start 01/04/17 at 17:30 Glucagon (Glucagen) 1 mg Q15M PRN IM DECREASED GLUCOSE; Start 01/04/17 at 17:30 Glucose (Glutose) 15 gm Q15M PRN BUCCAL DECREASED GLUCOSE; Start 01/04/17 at 17 :30 Risperidone (Risperdal) 2 mg HS PO Last administered on 01/06/17 21:02; Admin Dose 2 MG; Start 01/04/17 at 21:00 Amlodipine Besylate (Norvasc) 10 mg DAILY PO Last administered on 01/07/17 08: 51; Admin Dose 10 MG; Start 01/04/17 at 18:00 Ibuprofen (Motrin) 400 mg Q8H PRN PO PAIN Last administered on 01/06/17 16:00; Admin Dose 400 MG; Start 01/06/17 at 15:00 Acetaminophen/ Hydrocodone Bitart ([place] (10/325)) 1 tab Q6H PRN PO PAIN LEVEL 6-10 Last administered on 01/06/17 13:51; Admin Dose 1 TAB; Start 01/06/17 at 12: 00 IV Flush (NS 10 ml) 10 ml PRN PRN IV IV PROTOCOL; Start 01/06/17 at 13:30 GIORGIO SANCHEZ MD Jan 07, 2017 09:59
[2017-01-07] MEDS: IBUPROFEN 400 MG TAB PO PRN (15:44)
[2017-01-07] MEDS: HYDROCODONE/APAP (10/325) TAB PO PRN (19:24)
[2017-01-07] MEDS: INSULIN GLARGINE [LANtus] 3 ML PEN SC SCH (22:30)
[2017-01-08] MEDS: ACCU-CHEK XX SCH (02:00)
[2017-01-08] MEDS: PANTOPRAZOLE (EC) 40 MG TAB PO SCH (06:22)
--- NOTE | 2017-01-08 08:20 | CONS ---
DATE OF ADMISSION: 01/04/2017 DATE OF CONSULTATION: 01/07/2017 VASCULAR SURGERY CONSULTATION Dear doctors, Ms. Lott is a 71-year-old female with history of dementia and bedbound with urinary incontinence a nd dementia who was admitted to [facility] secondary to left lower extremity secon d toe gangrene. It seems the patient had become nonambulatory for some time now and the family had noticed worsening second toe ulcer that developed gangrene and increasing pain. At the moment, the patient is not well oriented to time and place as she has a baseline dementia and not able to fully answer questions other than having pain in her left lower extremity. REVIEW OF SYSTEMS: A 14-point review was attempted; however, limited as we are unable to ascertain the patient's status. She does not answer questions completely. PAST MEDICAL HISTORY: Entails dementia, type 2 diabetes, schizophrenia (questionable), bedbound, no nambulatory, bilateral lower extremity atherosclerosis, left lower extremity toe ulcer, hypertension , coronary artery disease, previous IV drug abuser. PAST SURGICAL HISTORY: Chest tube placement in the past. ALLERGIES: CODEINE. FAMILY HISTORY: Diabetes and hypertension. SOCIAL HISTORY: Positive for former tobacco and IV drug abuser. Denies anything currently. PHYSICAL EXAMINATION: GENERAL: The patient is awake, however, not oriented to time and place, no apparent distress. HEENT: Normocephalic, atraumatic. Mucosa moist. NECK: Supple. No carotid bruit. PULMONARY: Clear to auscultation bilaterally. No crackles. CARDIOVASCULAR: S1, S2 present. No murmurs. ABDOMEN: Soft, nontender, nondistended. Bowel sounds positive. EXTREMITIES: RIGHT LOWER EXTREMITY: Palpable femoral pulse, nonpalpable pedal pulse. Motor, sensory intact. Ca p refill 3 to 4 seconds. No significant contracture identified. LEFT LOWER EXTREMITY: Palpable femoral pulse, nonpalpable pedal pulse. Motor, sensory limited as t he patient does not follow commands well. Knee contracture, not significant. Second toe gangrene. Tender upon palpation, some surrounding erythema. Dependent rubor of the forefoot. ASSESSMENT AND PLAN: Bilateral lower extremity atherosclerosis with left lower extremity gangrene: It seems the patient has significant infrainguinal atherosclerotic disease, and upon her diagnostic studies, it has been identified that the patient has dampened waveforms in the infrapopliteal regio n. Unfortunately, as the patient has advanced dementia, schizophrenia, and has been nonambulatory a nd bedbound, it limits our vascular interventions. We will plan to schedule a family meeting, discu ss our plans further with them as limb salvage would be very limited with her. Optimize vascular status (BP meds, diet, nutrition, exercise, sugar control, antiplatelet). Discussed findings, plan, and management with the primary service. We will arrange a family discuss ion. Thank you for allowing us to partake in the care of your patient. Please call with any questions. Dictated By: ANIBAL GUZMÁN/GIFTY Conf#: [id number] DID#: [id number]
[2017-01-08 09:00] VITALS: BP 124/60; RESP 16
[2017-01-08] MEDS: CHOLECALCIFEROL 1,000 UNIT TAB PO SCH (09:07)
[2017-01-08] MEDS: ASPIRIN (EC) 81 MG TAB PO SCH (09:07)
[2017-01-08] MEDS: DOCUSATE SODIUM 100 MG CAP PO SCH (09:07)
[2017-01-08] MEDS: RISPERIDONE 1 MG TAB PO SCH ×2 (09:07→21:33)
[2017-01-08] MEDS: MULTIVITAMINS THERAPEUTIC TAB PO SCH (09:07)
[2017-01-08] MEDS: MAGNESIUM OXIDE 400 MG TAB PO SCH (09:08)
[2017-01-08] MEDS: MEMANTINE 10 MG TAB PO SCH ×2 (09:08→21:33)
[2017-01-08] MEDS: AMLODIPINE 10 MG TAB PO SCH (09:08)
[2017-01-08] MEDS: PAROXETINE 20 MG TAB PO SCH (09:08)
[2017-01-08] MEDS: INSULIN ASPART [NOVOLOG] 3 ML PEN SC SCH ×4 (09:09→21:40)
[2017-01-08] MEDS: ENOXAPARIN 40 MG/0.4 ML SYG SC SCH (09:10)
[2017-01-08] MEDS: HYDROCODONE/APAP (10/325) TAB PO PRN ×2 (09:47→18:07)
--- NOTE | 2017-01-08 12:31 | PN ---
Date/Time of Note Date/Time of Note DATE: 01/08/17 TIME: 12:30 Assessment/Plan VTE Prophylaxis VTE Prophylaxis Intervention: SCD's Lines/Catheters IV Catheter Type (from Nrsg): PICC Line Central line still needed: No Urinary Cath still in place: No Assessment/Plan Assessment/Plan 71 yo F with dementia, DM2, L toe ulcer brought in for toe ulcer and placement #toe ulcer: -vascular surgery following, they will coordinate family meeting this week -MRI neg for OM -wound care cs -cont home asa #dementia with h/o agitation cont home psychoactive meds #DM2: hold home oral agents accuchecks and SSI #placement: sw on consult #FEN: DM diet #prophx: SCDs and LMWH dispo pending placement pt with PICC in place, nursing states they are unable to place peripheral Subjective 24 Hr Interval Summary Free Text/Dictation pain appears well controlled this AM discussed patient with vascular surgery this AM. Options for toe are limited Exam/Review of Systems Vital Signs Vitals Vital Signs Date Time Temp Pulse Resp B/P Pulse Ox O2 Delivery O2 Flow Rate FiO2 01/08/17 09:00 86 16 124/60 96 01/07/17 08:27 98.5 01/06/17 08:11 Room Air 01/04/17 14:32 3.0 Intake and Output 01/07/17 01/07/17 01/08/17 15:00 23:00 07:00 Intake Total 600 ml 120 ml Output Total 2 ml Balance 600 ml 118 ml Exam nad sitting up in bed no mrg lungs clear abd soft L toe ulcer unchanged Results Result Diagram: 01/04/17 0815 01/05/17 0441 Results 24 hrs Laboratory Tests Test 01/07/17 12:58 01/07/17 17:48 01/07/17 20:47 01/08/17 02:52 Bedside Glucose 219 223 H 324 H 183 Test 01/08/17 09:06 Bedside Glucose 165 Medications Medications Current Medications Acetaminophen (Tylenol Tab) 650 mg Q6H PRN PO PAIN AND OR ELEVATED TEMP Last administered on 01/05/17 21:27; Admin Dose 650 MG; Start 01/04/17 at 17:00 Aspirin (Halfprin) 81 mg DAILY PO Last administered on 01/08/17 09:07; Admin Dose 81 MG; Start 01/05/17 at 09:00 Bisacodyl (Dulcolax Supp) 10 mg DAILY PRN [place] CONSTIPATION; Start 01/04/17 at 17 :00 Cholecalciferol (Vitamin D) 1,000 unit DAILY PO Last administered on 01/08/17 09:07; Admin Dose 1,000 UNIT; Start 01/05/17 at 09:00 Docusate Sodium (Colace) 100 mg DAILY PO Last administered on 01/08/17 09:07; Admin Dose 100 MG; Start 01/05/17 at 09:00 Magnesium Hydroxide (Milk Of Mag) 30 ml QHS PRN PO CONSTIPATION; Start at 17:00 Magnesium Oxide (Mag-Ox 400) 400 mg DAILY PO Last administered on 01/08/17 09: 08; Admin Dose 400 MG; Start 01/05/17 at 09:00 Memantine (Namenda) 10 mg BID PO Last administered on 01/08/17 09:08; Admin Dose 10 MG; Start 01/04/17 at 21:00 Multivitamins Therapeutic (Theragran) 1 tab DAILY PO Last administered on 09:07; Admin Dose 1 TAB; Start 01/05/17 at 09:00 Pantoprazole (Protonix Tab) 40 mg DAILY@06 PO Last administered on 01/08/17 06: 22; Admin Dose 40 MG; Start 01/05/17 at 06:00 Paroxetine HCl (Paxil) 20 mg DAILY PO Last administered on 01/08/17 09:08; Admin Dose 20 MG; Start 01/05/17 at 09:00 Risperidone (Risperdal) 1 mg QAM PO Last administered on 01/08/17 09:07; Admin Dose 1 MG; Start 01/05/17 at 09:00 Enoxaparin Sodium (Lovenox) 40 mg DAILY SC Last administered on 01/08/17 09:10 ; Admin Dose 40 MG; Start 01/05/17 at 09:00 Miscellaneous Information 1 ea NOTE XX ; Start 01/04/17 at 17:30 Glucose (Glutose) 15 gm Q15M PRN PO DECREASED GLUCOSE; Start 01/04/17 at 17:30 Glucose (Glutose) 22.5 gm Q15M PRN PO DECREASED GLUCOSE; Start 5/31/17 at 17: 30 Dextrose (D50w Syringe) 25 ml Q15M PRN IV DECREASED GLUCOSE; Start 01/04/17 at 17:30 Dextrose (D50w Syringe) 50 ml Q15M PRN IV DECREASED GLUCOSE; Start 01/04/17 at 17:30 Glucagon (Glucagen) 1 mg Q15M PRN IM DECREASED GLUCOSE; Start 01/04/17 at 17:30 Glucose (Glutose) 15 gm Q15M PRN BUCCAL DECREASED GLUCOSE; Start 01/04/17 at 17 :30 Risperidone (Risperdal) 2 mg HS PO Last administered on 01/07/17 20:49; Admin Dose 2 MG; Start 01/04/17 at 21:00 Amlodipine Besylate (Norvasc) 10 mg DAILY PO Last administered on 01/08/17 09: 08; Admin Dose 10 MG; Start 01/04/17 at 18:00 Ibuprofen (Motrin) 400 mg Q8H PRN PO PAIN Last administered on 01/07/17 15:44; Admin Dose 400 MG; Start 01/06/17 at 15:00 Acetaminophen/ Hydrocodone Bitart ([place] (10/325)) 1 tab Q6H PRN PO PAIN LEVEL 6-10 Last administered on 01/08/17 09:47; Admin Dose 1 TAB; Start 01/06/17 at 12: 00 IV Flush (NS 10 ml) 10 ml PRN PRN IV IV PROTOCOL; Start 01/06/17 at 13:30 Diagnostic Test (Pha) (Accu-Chek) 1 ea 02 XX ; Start 01/08/17 at 02:00 Insulin Glargine (Lantus) 10 unit QHS SC ; Start 01/07/17 at 21:00 GIORGIO SANCHEZ MD Jan 08, 2017 12:31
--- NOTE | 2017-01-08 17:06 | RADRPT ---
PROCEDURE: US Lower Extremity Veins. CLINICAL INDICATION: Venous mapping. TECHNIQUE: Multiple longitudinal and transverse images of the bilateral lower extremity venous marcel e was obtained with silver scale and color Doppler imaging. COMPARISON: None. FINDINGS: LocationRightLeft Groin GSV3.8 mm4.7 mm Upper thigh GSV 1.7 mm3.1 mm Mid thigh GSV 2.1 mm3.3 mm Lower thigh GSV 2.0 mm3.6 mm Knee GSV 1.9 mm3.2 mm Upper calf GSV 1.6 mm1.4 mm Mid calf GSV 1.4 mm1.5 mm Ankle GSV1.3 mm1.5 mm All veins are compressible. IMPRESSION: 1. Bilateral lower extremity venous mapping, as detailed above. RPTAT: [facility] .Maksim Ford MD, Date Time Electronically viewed and signed by .Maksim Ford MD, on 01/08/2017 17:06 .C/
[2017-01-08 19:15] VITALS: BP 175/80; RESP 18
[2017-01-08 20:37] VITALS: BP 134/58
[2017-01-08] MEDS: INSULIN GLARGINE [LANtus] 3 ML PEN SC SCH (21:39)
[2017-01-09] MEDS: ACCU-CHEK XX SCH (01:46)
[2017-01-09 05:20] VITALS: PULSE 109; RESP 20
[2017-01-09] MEDS: PANTOPRAZOLE (EC) 40 MG TAB PO SCH (05:47)
[2017-01-09 08:47] VITALS: BP 138/62; RESP 19
[2017-01-09] MEDS: ENOXAPARIN 40 MG/0.4 ML SYG SC SCH (08:52)
[2017-01-09] MEDS: INSULIN ASPART [NOVOLOG] 3 ML PEN SC SCH ×4 (08:52→20:41)
[2017-01-09] MEDS: MULTIVITAMINS THERAPEUTIC TAB PO SCH (08:54)
[2017-01-09] MEDS: PAROXETINE 20 MG TAB PO SCH (08:54)
[2017-01-09] MEDS: ASPIRIN (EC) 81 MG TAB PO SCH (08:54)
[2017-01-09] MEDS: DOCUSATE SODIUM 100 MG CAP PO SCH (08:54)
[2017-01-09] MEDS: CHOLECALCIFEROL 1,000 UNIT TAB PO SCH (08:54)
[2017-01-09] MEDS: MAGNESIUM OXIDE 400 MG TAB PO SCH (08:54)
[2017-01-09] MEDS: MEMANTINE 10 MG TAB PO SCH ×2 (08:54→20:33)
[2017-01-09] MEDS: RISPERIDONE 1 MG TAB PO SCH ×2 (08:54→20:33)
[2017-01-09] MEDS: AMLODIPINE 10 MG TAB PO SCH (08:55)
[2017-01-09 15:38] VITALS: BP 139/60; RESP 19
--- NOTE | 2017-01-09 15:40 | PN ---
Date/Time of Note Date/Time of Note DATE: 01/09/17 TIME: 15:35 Assessment/Plan VTE Prophylaxis VTE Prophylaxis Intervention: SCD's Lines/Catheters IV Catheter Type (from Nrsg): PICC Line Central line still needed: Yes Urinary Cath still in place: No Assessment/Plan Chief Complaint/Hosp Course Assessment/Plan: 71 yo F with dementia, DM2, L toe ulcer brought in for toe ulcer and placement 1. toe ulcer - vascular surgery following. Vascular study performed yesterday. MRI neg for OM - f/u vascular consult rec's -cont home asa 2. dementia with h/o agitation - cont home psychoactive meds 3. DM2: hold home oral agents - accuchecks and SSI 4. tachy - unclear source, possible sec to pain - [place] prn 5. placement: sw on consult - f/u their options 6. FEN: DM diet 7. prophx: SCDs and LMWH dispo pending placement, tachy pt with PICC in place, nursing states they are unable to place peripheral Problems: Subjective 24 Hr Interval Summary Free Text/Dictation Pt with occasional agitation, not able to perform full PT today. Seen by vascular team yesterday. Exam/Review of Systems Vital Signs Vitals Vital Signs Date Time Temp Pulse Resp B/P Pulse Ox O2 Delivery O2 Flow Rate FiO2 01/09/17 08:47 98.0 114 19 138/62 98 01/06/17 08:11 Room Air Intake and Output 01/08/17 01/08/17 01/09/17 15:00 23:00 07:00 Intake Total 720 ml 480 ml Balance 720 ml 480 ml Exam GENERAL: not oriented to time and place, no apparent distress. HEENT: Normocephalic, atraumatic. Mucosa moist. NECK: Supple. No carotid bruit. PULMONARY: Clear to auscultation bilaterally. No crackles. CARDIOVASCULAR: S1, S2 present. No murmurs. ABDOMEN: Soft, nontender, nondistended. Bowel sounds positive. EXTREMITIES: RIGHT LOWER EXTREMITY: Palpable femoral pulse, nonpalpable pedal pulse. Motor , sensory intact. Cap refill 3 to 4 seconds LEFT LOWER EXTREMITY: Palpable femoral pulse, nonpalpable pedal pulse. Motor, sensory limited as the patient does not follow commands well. Knee contracture , not significant. Second toe gangrene. Tender upon palpation, some surrounding erythema. Results Result Diagram: 01/05/17 0441 Results 24 hrs Laboratory Tests Test 01/08/17 18:00 01/08/17 21:37 01/09/17 01:43 01/09/17 08:49 Bedside Glucose 215 202 176 186 Test 01/09/17 12:55 Bedside Glucose 177 Medications Medications Current Medications Acetaminophen (Tylenol Tab) 650 mg Q6H PRN PO PAIN AND OR ELEVATED TEMP Last administered on 01/05/17 21:27; Admin Dose 650 MG; Start 01/04/17 at 17:00 Aspirin (Halfprin) 81 mg DAILY PO Last administered on 01/09/17 08:54; Admin Dose 81 MG; Start 01/05/17 at 09:00 Bisacodyl (Dulcolax Supp) 10 mg DAILY PRN [place] CONSTIPATION; Start 01/04/17 at 17 :00 Cholecalciferol (Vitamin D) 1,000 unit DAILY PO Last administered on 01/09/17 08:54; Admin Dose 1,000 UNIT; Start 01/05/17 at 09:00 Docusate Sodium (Colace) 100 mg DAILY PO Last administered on 01/09/17 08:54; Admin Dose 100 MG; Start 01/05/17 at 09:00 Magnesium Hydroxide (Milk Of Mag) 30 ml QHS PRN PO CONSTIPATION; Start at 17:00 Magnesium Oxide (Mag-Ox 400) 400 mg DAILY PO Last administered on 01/09/17 08: 54; Admin Dose 400 MG; Start 01/05/17 at 09:00 Memantine (Namenda) 10 mg BID PO Last administered on 01/09/17 08:54; Admin Dose 10 MG; Start 01/04/17 at 21:00 Multivitamins Therapeutic (Theragran) 1 tab DAILY PO Last administered on 08:54; Admin Dose 1 TAB; Start 01/05/17 at 09:00 Pantoprazole (Protonix Tab) 40 mg DAILY@06 PO Last administered on 01/09/17 05: 47; Admin Dose 40 MG; Start 01/05/17 at 06:00 Paroxetine HCl (Paxil) 20 mg DAILY PO Last administered on 01/09/17 08:54; Admin Dose 20 MG; Start 01/05/17 at 09:00 Risperidone (Risperdal) 1 mg QAM PO Last administered on 01/09/17 08:54; Admin Dose 1 MG; Start 01/05/17 at 09:00 Enoxaparin Sodium (Lovenox) 40 mg DAILY SC Last administered on 01/09/17 08:52 ; Admin Dose 40 MG; Start 01/05/17 at 09:00 Miscellaneous Information 1 ea NOTE XX ; Start 01/04/17 at 17:30 Glucose (Glutose) 15 gm Q15M PRN PO DECREASED GLUCOSE; Start 01/04/17 at 17:30 Glucose (Glutose) 22.5 gm Q15M PRN PO DECREASED GLUCOSE; Start 01/04/17 at 17: 30 Dextrose (D50w Syringe) 25 ml Q15M PRN IV DECREASED GLUCOSE; Start 01/04/17 at 17:30 Dextrose (D50w Syringe) 50 ml Q15M PRN IV DECREASED GLUCOSE; Start 01/04/17 at 17:30 Glucagon (Glucagen) 1 mg Q15M PRN IM DECREASED GLUCOSE; Start 01/04/17 at 17:30 Glucose (Glutose) 15 gm Q15M PRN BUCCAL DECREASED GLUCOSE; Start 01/04/17 at 17 :30 Risperidone (Risperdal) 2 mg HS PO Last administered on 01/08/17 21:33; Admin Dose 2 MG; Start 01/04/17 at 21:00 Amlodipine Besylate (Norvasc) 10 mg DAILY PO Last administered on 01/09/17 08: 55; Admin Dose 10 MG; Start 01/04/17 at 18:00 Ibuprofen (Motrin) 400 mg Q8H PRN PO PAIN Last administered on 01/07/17 15:44; Admin Dose 400 MG; Start 01/06/17 at 15:00 Acetaminophen/ Hydrocodone Bitart ([place] (10/325)) 1 tab Q6H PRN PO PAIN LEVEL 6-10 Last administered on 01/08/17 18:07; Admin Dose 1 TAB; Start 01/06/17 at 12: 00 IV Flush (NS 10 ml) 10 ml PRN PRN IV IV PROTOCOL; Start 01/06/17 at 13:30 Diagnostic Test (Pha) (Accu-Chek) 1 ea 02 XX Last administered on 01/09/17 01: 46; Admin Dose 1 EA; Start 01/08/17 at 02:00 Insulin Glargine (Lantus) 10 unit QHS SC Last administered on 01/08/17 21:39; Admin Dose 10 UNIT; Start 01/07/17 at 21:00 RICA YOUNGBLOOD Jan 09, 2017 15:40
[2017-01-09] MEDS: HYDROCODONE/APAP (10/325) TAB PO PRN (15:45)
[2017-01-09 19:46] VITALS: BP 114/49; RESP 16
[2017-01-09] MEDS: INSULIN GLARGINE [LANtus] 3 ML PEN SC SCH (20:42)
[2017-01-10] MEDS: ACCU-CHEK XX SCH (01:49)
[2017-01-10 05:43] LABS: ADD SCAN DIFF NO
[2017-01-10 05:54] LABS: ABNORMAL IP MESSAGE 1; BASOPHIL # 0.1 10^3/ul (0.0-0.1); BASOPHILS % 0.6 % (0.0-2.0); EOSINOPHILS # 0.2 10^3/ul (0.0-0.5); HEMATOCRIT 30.6 % (37.0-47.0); HEMOGLOBIN 9.7 g/dl (12.0-16.0); LYMPHOCYTES # 2.4 10^3/ul (0.8-2.9); LYMPHOCYTES % 15.4 % (15.0-51.0); MEAN CORPUSCULAR HEMOGLOBIN 30.5 pg (29.0-33.0); MEAN CORPUSCULAR HGB CONC 31.7 g/dl (32.0-37.0); MEAN CORPUSCULAR VOLUME 96.2 fl (82.0-101.0); MEAN PLATELET VOLUME 11.4 fl (7.4-10.4); MONOCYTE # 2.3 10^3/ul (0.3-0.9); MONOCYTES % 14.6 % (0.0-11.0); NEUTROPHIL # 10.5 10^3/ul (1.6-7.5); NEUTROPHILS % 67.9 % (39.0-77.0); PLATELET COUNT 293 10^3/UL (140-415); RED BLOOD COUNT 3.18 10^6/ul (4.20-5.40); RED CELL DISTRIBUTION WIDTH 13.5 % (11.5-14.5); WHITE BLOOD COUNT 15.5 10^3/ul (4.8-10.8)
[2017-01-10] MEDS: ACETAMINOPHEN 325 MG TAB PO PRN ×2 (06:00→12:10)
[2017-01-10] MEDS: PANTOPRAZOLE (EC) 40 MG TAB PO SCH (06:00)
[2017-01-10 06:28] LABS: CREATININE 0.96 mg/dl (0.44-1.00); POTASSIUM 4.2 mmol/L (3.5-5.1)
[2017-01-10 08:11] VITALS: BP 101/39; RESP 16
[2017-01-10] MEDS: INSULIN ASPART [NOVOLOG] 3 ML PEN SC SCH ×4 (08:41→21:26)
[2017-01-10] MEDS: DOCUSATE SODIUM 100 MG CAP PO SCH (11:07)
[2017-01-10] MEDS: PAROXETINE 20 MG TAB PO SCH (11:08)
[2017-01-10] MEDS: MAGNESIUM OXIDE 400 MG TAB PO SCH (11:08)
[2017-01-10] MEDS: CHOLECALCIFEROL 1,000 UNIT TAB PO SCH (11:08)
[2017-01-10] MEDS: AMLODIPINE 10 MG TAB PO SCH (11:08)
[2017-01-10] MEDS: ASPIRIN (EC) 81 MG TAB PO SCH (11:08)
[2017-01-10] MEDS: MEMANTINE 10 MG TAB PO SCH ×2 (11:09→21:22)
[2017-01-10] MEDS: RISPERIDONE 1 MG TAB PO SCH ×2 (11:09→21:22)
[2017-01-10] MEDS: MULTIVITAMINS THERAPEUTIC TAB PO SCH (11:10)
[2017-01-10] MEDS: ENOXAPARIN 40 MG/0.4 ML SYG SC SCH (11:16)
--- NOTE | 2017-01-10 15:13 | PN ---
Date/Time of Note Date/Time of Note DATE: 01/10/17 TIME: 15:11 Assessment/Plan VTE Prophylaxis VTE Prophylaxis Intervention: SCD's Lines/Catheters IV Catheter Type (from Nrsg): PICC Line Central line still needed: Yes Urinary Cath still in place: No Assessment/Plan Chief Complaint/Hosp Course Assessment/Plan: 71 yo F with dementia, DM2, L toe ulcer brought in for toe ulcer and placement 1. toe ulcer - vascular surgery following. Vascular study performed. MRI neg for OM - f/u vascular consult rec's -cont home asa 2. dementia with h/o agitation - cont home psychoactive meds 3. DM2: hold home oral agents - accuchecks and SSI 4. tachy - unclear source, possible sec to pain - [place] prn 5. placement: sw on consult - f/u their options 6. FEN: DM diet 7. prophx: SCDs and LMWH dispo pending placement, tachy, but less so today pt with PICC in place, nursing states they are unable to place peripheral CM actively working on d/c to SNF vs convalescent home Problems: Subjective 24 Hr Interval Summary Free Text/Dictation Pt has less agitation, no acute events overnight. Exam/Review of Systems Vital Signs Vitals Vital Signs Date Time Temp Pulse Resp B/P Pulse Ox O2 Delivery O2 Flow Rate FiO2 01/10/17 08:16 99.8 01/10/17 08:11 100 16 101/39 95 01/06/17 08:11 Room Air Intake and Output 01/09/17 01/09/17 01/10/17 15:00 23:00 07:00 Intake Total 720 ml 700 ml Balance 720 ml 700 ml Exam GENERAL: not oriented to time and place, no apparent distress. HEENT: Normocephalic, atraumatic. Mucosa moist. NECK: Supple. No carotid bruit. PULMONARY: Clear to auscultation bilaterally. No crackles. CARDIOVASCULAR: S1, S2 present. No murmurs. ABDOMEN: Soft, nontender, nondistended. Bowel sounds positive. EXTREMITIES: RIGHT LOWER EXTREMITY: Palpable femoral pulse, nonpalpable pedal pulse. Motor , sensory intact. Cap refill 3 to 4 seconds LEFT LOWER EXTREMITY: Palpable femoral pulse, nonpalpable pedal pulse. Motor, sensory limited as the patient does not follow commands well. Knee contracture , not significant. Second toe gangrene. Tender upon palpation, some surrounding erythema. Results Result Diagram: 01/10/17 0453 01/10/17 0453 Results 24 hrs Laboratory Tests Test 01/09/17 17:57 01/09/17 20:39 01/10/17 01:46 01/10/17 04:53 Bedside Glucose 176 211 136 White Blood Count 15.5 #H Red Blood Count 3.18 L Hemoglobin 9.7 L Hematocrit 30.6 L Mean Corpuscular Volume 96.2 Mean Corpuscular Hemoglobin 30.5 Mean Corpuscular Hemoglobin Concent 31.7 L Red Cell Distribution Width 13.5 Platelet Count 293 Mean Platelet Volume 11.4 H Neutrophils % 67.9 Lymphocytes % 15.4 Monocytes % 14.6 H Eosinophils % 1.0 Basophils % 0.6 Nucleated Red Blood Cells % 0.0 Neutrophils # 10.5 H Lymphocytes # 2.4 Monocytes # 2.3 H Eosinophils # 0.2 Basophils # 0.1 Nucleated Red Blood Cells # 0.0 Sodium Level 140 Potassium Level 4.2 Chloride Level 102 Carbon Dioxide Level 30 Anion Gap 12 Blood Urea Nitrogen 22 H Creatinine 0.96 Glucose Level 147 Calcium Level 10.0 Test 01/10/17 08:32 01/10/17 12:11 Bedside Glucose 173 207 Medications Medications Current Medications Acetaminophen (Tylenol Tab) 650 mg Q6H PRN PO PAIN AND OR ELEVATED TEMP Last administered on 01/10/17 12:10; Admin Dose 650 MG; Start 01/04/17 at 17:00 Aspirin (Halfprin) 81 mg DAILY PO Last administered on 01/10/17 11:08; Admin Dose 81 MG; Start 01/05/17 at 09:00 Bisacodyl (Dulcolax Supp) 10 mg DAILY PRN [place] CONSTIPATION; Start 01/04/17 at 17 :00 Cholecalciferol (Vitamin D) 1,000 unit DAILY PO Last administered on 01/10/17 11:08; Admin Dose 1,000 UNIT; Start 01/05/17 at 09:00 Docusate Sodium (Colace) 100 mg DAILY PO Last administered on 01/10/17 11:07; Admin Dose 100 MG; Start 01/05/17 at 09:00 Magnesium Hydroxide (Milk Of Mag) 30 ml QHS PRN PO CONSTIPATION; Start at 17:00 Magnesium Oxide (Mag-Ox 400) 400 mg DAILY PO Last administered on 01/10/17 11: 08; Admin Dose 400 MG; Start 01/05/17 at 09:00 Memantine (Namenda) 10 mg BID PO Last administered on 01/10/17 11:09; Admin Dose 10 MG; Start 01/04/17 at 21:00 Multivitamins Therapeutic (Theragran) 1 tab DAILY PO Last administered on 11:10; Admin Dose 1 TAB; Start 01/05/17 at 09:00 Pantoprazole (Protonix Tab) 40 mg DAILY@06 PO Last administered on 01/10/17 06: 00; Admin Dose 40 MG; Start 01/05/17 at 06:00 Paroxetine HCl (Paxil) 20 mg DAILY PO Last administered on 01/10/17 11:08; Admin Dose 20 MG; Start 01/05/17 at 09:00 Risperidone (Risperdal) 1 mg QAM PO Last administered on 01/10/17 11:09; Admin Dose 1 MG; Start 01/05/17 at 09:00 Enoxaparin Sodium (Lovenox) 40 mg DAILY SC Last administered on 01/10/17 11:16 ; Admin Dose 40 MG; Start 01/05/17 at 09:00 Miscellaneous Information 1 ea NOTE XX ; Start 01/04/17 at 17:30 Glucose (Glutose) 15 gm Q15M PRN PO DECREASED GLUCOSE; Start 01/04/17 at 17:30 Glucose (Glutose) 22.5 gm Q15M PRN PO DECREASED GLUCOSE; Start 01/04/17 at 17: 30 Dextrose (D50w Syringe) 25 ml Q15M PRN IV DECREASED GLUCOSE; Start 01/04/17 at 17:30 Dextrose (D50w Syringe) 50 ml Q15M PRN IV DECREASED GLUCOSE; Start 01/04/17 at 17:30 Glucagon (Glucagen) 1 mg Q15M PRN IM DECREASED GLUCOSE; Start 01/04/17 at 17:30 Glucose (Glutose) 15 gm Q15M PRN BUCCAL DECREASED GLUCOSE; Start 01/04/17 at 17 :30 Risperidone (Risperdal) 2 mg HS PO Last administered on 01/09/17 20:33; Admin Dose 2 MG; Start 01/04/17 at 21:00 Amlodipine Besylate (Norvasc) 10 mg DAILY PO Last administered on 01/10/17 11: 08; Admin Dose 10 MG; Start 01/04/17 at 18:00 Ibuprofen (Motrin) 400 mg Q8H PRN PO PAIN Last administered on 01/07/17 15:44; Admin Dose 400 MG; Start 01/06/17 at 15:00 Acetaminophen/ Hydrocodone Bitart ([place] (10/325)) 1 tab Q6H PRN PO PAIN LEVEL 6-10 Last administered on 01/09/17 15:45; Admin Dose 1 TAB; Start 01/06/17 at 12: 00 IV Flush (NS 10 ml) 10 ml PRN PRN IV IV PROTOCOL; Start 01/06/17 at 13:30 Diagnostic Test (Pha) (Accu-Chek) 1 ea 02 XX Last administered on 01/10/17 01: 49; Admin Dose 1 EA; Start 01/08/17 at 02:00 Insulin Glargine (Lantus) 10 unit QHS SC Last administered on 01/09/17 20:42; Admin Dose 10 UNIT; Start 01/07/17 at 21:00 RICA YOUNGBLOOD Jan 10, 2017 15:13
[2017-01-10 19:24] VITALS: BP 110/54; RESP 18
[2017-01-10] MEDS: HYDROCODONE/APAP (10/325) TAB PO PRN (21:23)
[2017-01-10] MEDS: INSULIN GLARGINE [LANtus] 3 ML PEN SC SCH (21:26)
[2017-01-10 22:57] LABS: ADD UMIC YES; URINE BILIRUBIN (Dip) NEGATIVE (NEGATIVE); URINE BLOOD (Dip) TRACE (NEGATIVE); URINE COLOR LT. YELLOW (YELLOW); URINE KETONES (Dip) NEGATIVE (NEGATIVE); URINE LEUKOCYTE ESTERASE (Dip) 2+ (NEGATIVE); URINE NITRITE (Dip) NEGATIVE (NEGATIVE); URINE TOTAL PROTEIN (Dip) NEGATIVE (NEGATIVE); URINE UROBILINOGEN (Dip) 0.2 E.U./dL (0.1-1.0)
[2017-01-10 23:08] LABS: BACTERIA,URINE MANY; SQUAMOUS EPITHELIAL CELL,UR MANY; URINE RBCS 0-2 /HPF (0)
[2017-01-11] MEDS: ACCU-CHEK XX SCH (02:00)
[2017-01-11 05:22] LABS: ADD SCAN DIFF NO
[2017-01-11] MEDS: PANTOPRAZOLE (EC) 40 MG TAB PO SCH (05:22)
[2017-01-11 05:31] LABS: ABNORMAL IP MESSAGE 1; BASOPHIL # 0.1 10^3/ul (0.0-0.1); BASOPHILS % 0.5 % (0.0-2.0); EOSINOPHILS # 0.4 10^3/ul (0.0-0.5); EOSINOPHILS % 2.5 % (0.0-7.0); HEMATOCRIT 28.2 % (37.0-47.0); HEMOGLOBIN 9.3 g/dl (12.0-16.0); MEAN CORPUSCULAR HEMOGLOBIN 31.1 pg (29.0-33.0); MEAN CORPUSCULAR VOLUME 94.3 fl (82.0-101.0); MEAN PLATELET VOLUME 11.2 fl (7.4-10.4); MONOCYTE # 2.1 10^3/ul (0.3-0.9); MONOCYTES % 14.6 % (0.0-11.0); NEUTROPHIL # 8.6 10^3/ul (1.6-7.5); PLATELET COUNT 306 10^3/UL (140-415); RED BLOOD COUNT 2.99 10^6/ul (4.20-5.40); RED CELL DISTRIBUTION WIDTH 12.9 % (11.5-14.5)
[2017-01-11 06:01] LABS: CALCIUM 9.5 mg/dl (8.4-10.2); CREATININE 0.91 mg/dl (0.44-1.00)
--- NOTE | 2017-01-11 06:40 | RADRPT ---
PROCEDURE: XR Chest. CLINICAL INDICATION: Elevated white blood cell count TECHNIQUE: A single AP view of the chest was obtained. COMPARISON: Chest x-ray dated 01/06/2017 FINDINGS: There is a left upper extremity PICC line with tip in the upper right atrium. There is mild coarsening of the interstitial markings. No focal airspace opacification, pleural eff usion or pneumothorax is seen. The cardiomediastinal silhouette is within normal limits for size. C alcifications are seen within the aortic arch. The osseous structures are unremarkable. IMPRESSION: 1. Mild chronic-appearing interstitial changes. No significant interval change. 2. Aortic atherosclerosis. 3. Left upper extremity PICC line with tip in the upper right atrium. RPTAT: [facility] .Tisha Ruiz MD, Date Time Electronically viewed and signed by .Tisha Ruiz MD, on 01/11/2017 06:39 .G/
[2017-01-11 08:19] VITALS: BP 114/75; RESP 18
[2017-01-11] MEDS: INSULIN ASPART [NOVOLOG] 3 ML PEN SC SCH ×4 (09:21→21:08)
[2017-01-11] MEDS: DOCUSATE SODIUM 100 MG CAP PO SCH (10:39)
[2017-01-11] MEDS: MAGNESIUM OXIDE 400 MG TAB PO SCH (10:40)
[2017-01-11] MEDS: CHOLECALCIFEROL 1,000 UNIT TAB PO SCH (10:40)
[2017-01-11] MEDS: MULTIVITAMINS THERAPEUTIC TAB PO SCH (10:40)
[2017-01-11] MEDS: PAROXETINE 20 MG TAB PO SCH (10:40)
[2017-01-11] MEDS: AMLODIPINE 10 MG TAB PO SCH (10:41)
[2017-01-11] MEDS: RISPERIDONE 1 MG TAB PO SCH ×2 (10:41→21:04)
[2017-01-11] MEDS: MEMANTINE 10 MG TAB PO SCH ×2 (10:41→21:04)
[2017-01-11] MEDS: ASPIRIN (EC) 81 MG TAB PO SCH (10:41)
[2017-01-11] MEDS: ENOXAPARIN 40 MG/0.4 ML SYG SC SCH (11:20)
--- NOTE | 2017-01-11 14:45 | PN ---
Date/Time of Note Date/Time of Note DATE: 01/11/17 TIME: 14:43 Assessment/Plan VTE Prophylaxis VTE Prophylaxis Intervention: SCD's Lines/Catheters IV Catheter Type (from Nrsg): PICC Line Central line still needed: Yes Urinary Cath still in place: No Assessment/Plan Chief Complaint/Hosp Course Assessment/Plan: 71 yo F with dementia, DM2, L toe ulcer brought in for toe ulcer and placement 1. toe ulcer - vascular surgery following. Vascular study performed. MRI neg for OM - f/u vascular consult rec's -cont home asa 2. dementia with h/o agitation - cont home psychoactive meds 3. DM2: hold home oral agents - accuchecks and SSI 4. tachy - unclear source, possible sec to pain, UTI. - [place] prn 5. placement: sw on consult - f/u their options 6. FEN: DM diet 7. prophx: SCDs and LMWH 8. UTI - Rocephin, f/u cx results dispo pending placement, pt with PICC in place, nursing states they are unable to place peripheral CM actively working on d/c to SNF vs convalescent home Problems: Subjective 24 Hr Interval Summary Free Text/Dictation Pt with UTI, started now on abx, awaiting placement. Exam/Review of Systems Vital Signs Vitals Vital Signs Date Time Temp Pulse Resp B/P Pulse Ox O2 Delivery O2 Flow Rate FiO2 01/11/17 08:19 98.7 88 18 114/75 94 Intake and Output 01/10/17 01/10/17 01/11/17 15:00 23:00 07:00 Intake Total 1100 ml 360 ml Output Total 250 ml Balance 1100 ml 110 ml Exam GENERAL: not oriented to time and place, no apparent distress. HEENT: Normocephalic, atraumatic. Mucosa moist. NECK: Supple. No carotid bruit. PULMONARY: Clear to auscultation bilaterally. No crackles. CARDIOVASCULAR: S1, S2 present. No murmurs. ABDOMEN: Soft, nontender, nondistended. Bowel sounds positive. EXTREMITIES: RIGHT LOWER EXTREMITY: Palpable femoral pulse, nonpalpable pedal pulse. Motor , sensory intact. Cap refill 3 to 4 seconds LEFT LOWER EXTREMITY: Palpable femoral pulse, nonpalpable pedal pulse. Motor, sensory limited as the patient does not follow commands well. Knee contracture , not significant. Second toe gangrene. some tender upon palpation, some surrounding erythema. Results Result Diagram: 01/11/17 0438 01/11/17 0438 Results 24 hrs Laboratory Tests Test 01/10/17 17:03 01/10/17 21:23 01/10/17 22:35 01/11/17 02:44 Bedside Glucose 279 H 216 157 Urine Color LT. YELLOW Urine Clarity SLIGHTLY CLOUDY Urine pH 6.5 Urine Specific [place] 1.010 Urine Ketones NEGATIVE Urine Nitrite NEGATIVE Urine Bilirubin NEGATIVE Urine Urobilinogen 0.2 E.U./dL Urine Leukocyte Esterase 2+ H Urine Microscopic RBC 0-2 Urine Microscopic WBC >50 Urine Squamous Epithelial Cells MANY Urine Bacteria MANY Urine Hemoglobin TRACE Urine Glucose 0.1% H Urine Total Protein NEGATIVE Test 01/11/17 04:38 01/11/17 08:53 01/11/17 12:20 White Blood Count 14.0 H Red Blood Count 2.99 L Hemoglobin 9.3 L Hematocrit 28.2 L Mean Corpuscular Volume 94.3 Mean Corpuscular Hemoglobin 31.1 Mean Corpuscular Hemoglobin Concent 33.0 Red Cell Distribution Width 12.9 Platelet Count 306 Mean Platelet Volume 11.2 H Neutrophils % 61.0 Lymphocytes % 21.0 Monocytes % 14.6 H Eosinophils % 2.5 Basophils % 0.5 Nucleated Red Blood Cells % 0.0 Neutrophils # 8.6 H Lymphocytes # 3.0 H Monocytes # 2.1 H Eosinophils # 0.4 Basophils # 0.1 Nucleated Red Blood Cells # 0.0 Sodium Level 139 Potassium Level 4.0 Chloride Level 100 Carbon Dioxide Level 30 Anion Gap 13 Blood Urea Nitrogen 19 Creatinine 0.91 Glucose Level 161 Calcium Level 9.5 Bedside Glucose 178 289 H Medications Medications Current Medications Acetaminophen (Tylenol Tab) 650 mg Q6H PRN PO PAIN AND OR ELEVATED TEMP Last administered on 01/10/17 12:10; Admin Dose 650 MG; Start 01/04/17 at 17:00 Aspirin (Halfprin) 81 mg DAILY PO Last administered on 01/11/17 10:41; Admin Dose 81 MG; Start 01/05/17 at 09:00 Bisacodyl (Dulcolax Supp) 10 mg DAILY PRN ME CONSTIPATION Last administered on 01/11/17 10:41; Admin Dose 10 MG; Start 01/04/17 at 17:00 Cholecalciferol (Vitamin D) 1,000 unit DAILY PO Last administered on 01/11/17 10:40; Admin Dose 1,000 UNIT; Start 01/05/17 at 09:00 Docusate Sodium (Colace) 100 mg DAILY PO Last administered on 01/11/17 10:39; Admin Dose 100 MG; Start 01/05/17 at 09:00 Magnesium Hydroxide (Milk Of Mag) 30 ml QHS PRN PO CONSTIPATION; Start at 17:00 Magnesium Oxide (Mag-Ox 400) 400 mg DAILY PO Last administered on 01/11/17 10: 40; Admin Dose 400 MG; Start 01/05/17 at 09:00 Memantine (Namenda) 10 mg BID PO Last administered on 01/11/17 10:41; Admin Dose 10 MG; Start 01/04/17 at 21:00 Multivitamins Therapeutic (Theragran) 1 tab DAILY PO Last administered on 10:40; Admin Dose 1 TAB; Start 01/05/17 at 09:00 Pantoprazole (Protonix Tab) 40 mg DAILY@06 PO Last administered on 01/11/17 05: 22; Admin Dose 40 MG; Start 01/05/17 at 06:00 Paroxetine HCl (Paxil) 20 mg DAILY PO Last administered on 01/11/17 10:40; Admin Dose 20 MG; Start 01/05/17 at 09:00 Risperidone (Risperdal) 1 mg QAM PO Last administered on 01/11/17 10:41; Admin Dose 1 MG; Start 01/05/17 at 09:00 Enoxaparin Sodium (Lovenox) 40 mg DAILY SC Last administered on 01/11/17 11:20 ; Admin Dose 40 MG; Start 01/05/17 at 09:00 Miscellaneous Information 1 ea NOTE XX ; Start 01/04/17 at 17:30 Glucose (Glutose) 15 gm Q15M PRN PO DECREASED GLUCOSE; Start 01/04/17 at 17:30 Glucose (Glutose) 22.5 gm Q15M PRN PO DECREASED GLUCOSE; Start 01/04/17 at 17: 30 Dextrose (D50w Syringe) 25 ml Q15M PRN IV DECREASED GLUCOSE; Start 01/04/17 at 17:30 Dextrose (D50w Syringe) 50 ml Q15M PRN IV DECREASED GLUCOSE; Start 01/04/17 at 17:30 Glucagon (Glucagen) 1 mg Q15M PRN IM DECREASED GLUCOSE; Start 01/04/17 at 17:30 Glucose (Glutose) 15 gm Q15M PRN BUCCAL DECREASED GLUCOSE; Start 01/04/17 at 17 :30 Risperidone (Risperdal) 2 mg HS PO Last administered on 01/10/17 21:22; Admin Dose 2 MG; Start 01/04/17 at 21:00 Amlodipine Besylate (Norvasc) 10 mg DAILY PO Last administered on 01/11/17 10: 41; Admin Dose 10 MG; Start 01/04/17 at 18:00 Ibuprofen (Motrin) 400 mg Q8H PRN PO PAIN Last administered on 01/07/17 15:44; Admin Dose 400 MG; Start 01/06/17 at 15:00 Acetaminophen/ Hydrocodone Bitart ([place] (10/325)) 1 tab Q6H PRN PO PAIN LEVEL 6-10 Last administered on 01/10/17 21:23; Admin Dose 1 TAB; Start 01/06/17 at 12: 00 IV Flush (NS 10 ml) 10 ml PRN PRN IV IV PROTOCOL; Start 01/06/17 at 13:30 Diagnostic Test (Pha) (Accu-Chek) 1 ea 02 XX Last administered on 01/10/17 01: 49; Admin Dose 1 EA; Start 01/08/17 at 02:00 Insulin Glargine 10 unit 10 unit QHS SC Last administered on 01/10/17 21:26; Admin Dose 10 UNIT; Start 01/07/17 at 21:00 Ceftriaxone Sodium (Rocephin) 50 ml @ 100 mls/hr Q24H IVPB ; Start 01/11/17 at 15:00; Status RICA PETERS Jan 11, 2017 14:45
[2017-01-11] MEDS: CEFTRIAXONE 2 GM/50 ML (PMX) 50 ML IVPB SCH (16:35)
[2017-01-11 19:42] VITALS: BP 112/62; RESP 18
[2017-01-11] MEDS: INSULIN GLARGINE [LANtus] 3 ML PEN SC SCH (21:09)
[2017-01-12] MEDS: ACCU-CHEK XX SCH (02:25)
[2017-01-12 05:03] LABS: ADD SCAN DIFF NO
[2017-01-12] MEDS: PANTOPRAZOLE (EC) 40 MG TAB PO SCH (05:12)
[2017-01-12 05:19] LABS: ABNORMAL IP MESSAGE 1; BASOPHILS % 0.2 % (0.0-2.0); EOSINOPHILS % 0.1 % (0.0-7.0); HEMATOCRIT 29.1 % (37.0-47.0); HEMOGLOBIN 9.4 g/dl (12.0-16.0); LYMPHOCYTES # 1.7 10^3/ul (0.8-2.9); LYMPHOCYTES % 9.4 % (15.0-51.0); MEAN CORPUSCULAR HEMOGLOBIN 30.2 pg (29.0-33.0); MEAN CORPUSCULAR HGB CONC 32.3 g/dl (32.0-37.0); MEAN CORPUSCULAR VOLUME 93.6 fl (82.0-101.0); MEAN PLATELET VOLUME 11.1 fl (7.4-10.4); MONOCYTES % 11.2 % (0.0-11.0); NEUTROPHILS % 78.7 % (39.0-77.0); PLATELET COUNT 323 10^3/UL (140-415); RED BLOOD COUNT 3.11 10^6/ul (4.20-5.40); RED CELL DISTRIBUTION WIDTH 13.1 % (11.5-14.5); WHITE BLOOD COUNT 17.8 10^3/ul (4.8-10.8)
[2017-01-12 05:39] LABS: CALCIUM 9.8 mg/dl (8.4-10.2); CREATININE 0.96 mg/dl (0.44-1.00); POTASSIUM 3.7 mmol/L (3.5-5.1)
[2017-01-12 08:18] VITALS: BP 114/48; RESP 20
[2017-01-12] MEDS: MAGNESIUM OXIDE 400 MG TAB PO SCH (10:27)
[2017-01-12] MEDS: MEMANTINE 10 MG TAB PO SCH ×2 (10:28→20:45)
[2017-01-12] MEDS: MULTIVITAMINS THERAPEUTIC TAB PO SCH (10:28)
[2017-01-12] MEDS: AMLODIPINE 10 MG TAB PO SCH (10:28)
[2017-01-12] MEDS: ASPIRIN (EC) 81 MG TAB PO SCH (10:28)
[2017-01-12] MEDS: RISPERIDONE 1 MG TAB PO SCH ×2 (10:28→20:45)
[2017-01-12] MEDS: PAROXETINE 20 MG TAB PO SCH (10:28)
[2017-01-12] MEDS: CHOLECALCIFEROL 1,000 UNIT TAB PO SCH (10:28)
[2017-01-12] MEDS: DOCUSATE SODIUM 100 MG CAP PO SCH (10:29)
[2017-01-12] MEDS: INSULIN ASPART [NOVOLOG] 3 ML PEN SC SCH ×4 (10:31→21:00)
[2017-01-12] MEDS: ENOXAPARIN 40 MG/0.4 ML SYG SC SCH (10:33)
[2017-01-12] MEDS: HYDROCODONE/APAP (10/325) TAB PO PRN (10:42)
--- NOTE | 2017-01-12 13:58 | PN ---
Date/Time of Note Date/Time of Note DATE: 01/12/17 TIME: 13:56 Assessment/Plan VTE Prophylaxis VTE Prophylaxis Intervention: SCD's Lines/Catheters IV Catheter Type (from Nrsg): PICC Line Central line still needed: Yes Urinary Cath still in place: No Assessment/Plan Chief Complaint/Hosp Course Assessment/Plan: 71 yo F with dementia, DM2, L toe ulcer brought in for toe ulcer and placement 1. toe ulcer - vascular surgery following. Vascular study performed. MRI neg for OM - f/u vascular consult rec's -cont home asa 2. dementia with h/o agitation - cont home psychoactive meds 3. DM2: hold home oral agents - accuchecks and SSI 4. tachy - unclear source, possible sec to pain, UTI. - [place] prn 5. placement: sw on consult - f/u their options 6. FEN: DM diet 7. prophx: SCDs and LMWH 8. UTI - Rocephin, f/u cx results dispo pending placement, pt with PICC in place, nursing states they are unable to place peripheral CM actively working on d/c to SNF vs convalescent home Problems: Subjective 24 Hr Interval Summary Free Text/Dictation Pt has less agitation, no acute events overnight. Exam/Review of Systems Vital Signs Vitals Vital Signs Date Time Temp Pulse Resp B/P Pulse Ox O2 Delivery O2 Flow Rate FiO2 01/12/17 08:18 97.7 106 20 114/48 96 Intake and Output 01/11/17 01/11/17 01/12/17 15:00 23:00 07:00 Intake Total 570 ml 300 ml Balance 570 ml 300 ml Exam GENERAL: not oriented to time and place, no apparent distress. HEENT: Normocephalic, atraumatic. Mucosa moist. NECK: Supple. No carotid bruit. PULMONARY: Clear to auscultation bilaterally. No crackles. CARDIOVASCULAR: S1, S2 present. No murmurs. ABDOMEN: Soft, nontender, nondistended. Bowel sounds positive. EXTREMITIES: RIGHT LOWER EXTREMITY: Palpable femoral pulse, nonpalpable pedal pulse. Motor , sensory intact. Cap refill 3 to 4 seconds LEFT LOWER EXTREMITY: Palpable femoral pulse, nonpalpable pedal pulse. Motor, sensory limited as the patient does not follow commands well. Knee contracture , not significant. Second toe gangrene. less tender upon palpation, less surrounding erythema. Results Result Diagram: 01/12/17 0425 01/12/17 0425 Results 24 hrs Laboratory Tests Test 01/11/17 17:29 01/11/17 21:06 01/12/17 02:21 01/12/17 04:25 Bedside Glucose 251 H 209 208 White Blood Count 17.8 #H Red Blood Count 3.11 L Hemoglobin 9.4 L Hematocrit 29.1 L Mean Corpuscular Volume 93.6 Mean Corpuscular Hemoglobin 30.2 Mean Corpuscular Hemoglobin Concent 32.3 Red Cell Distribution Width 13.1 Platelet Count 323 Mean Platelet Volume 11.1 H Neutrophils % 78.7 H Lymphocytes % 9.4 L Monocytes % 11.2 H Eosinophils % 0.1 Basophils % 0.2 Nucleated Red Blood Cells % 0.0 Neutrophils # 14.0 H Lymphocytes # 1.7 Monocytes # 2.0 H Eosinophils # 0.0 Basophils # 0.0 Nucleated Red Blood Cells # 0.0 Sodium Level 137 Potassium Level 3.7 Chloride Level 99 Carbon Dioxide Level 30 Anion Gap 12 Blood Urea Nitrogen 20 Creatinine 0.96 Glucose Level 220 Calcium Level 9.8 Test 01/12/17 08:29 01/12/17 10:26 01/12/17 12:42 Bedside Glucose 189 208 205 Medications Medications Current Medications Acetaminophen (Tylenol Tab) 650 mg Q6H PRN PO PAIN AND OR ELEVATED TEMP Last administered on 01/10/17 12:10; Admin Dose 650 MG; Start 01/04/17 at 17:00 Aspirin (Halfprin) 81 mg DAILY PO Last administered on 01/12/17 10:28; Admin Dose 81 MG; Start 01/05/17 at 09:00 Bisacodyl (Dulcolax Supp) 10 mg DAILY PRN [place] CONSTIPATION Last administered on 01/11/17 10:41; Admin Dose 10 MG; Start 01/04/17 at 17:00 Cholecalciferol (Vitamin D) 1,000 unit DAILY PO Last administered on 01/12/17 10:28; Admin Dose 1,000 UNIT; Start 01/05/17 at 09:00 Docusate Sodium (Colace) 100 mg DAILY PO Last administered on 01/12/17 10:29; Admin Dose 100 MG; Start 01/05/17 at 09:00 Magnesium Hydroxide (Milk Of Mag) 30 ml QHS PRN PO CONSTIPATION; Start at 17:00 Magnesium Oxide (Mag-Ox 400) 400 mg DAILY PO Last administered on 01/12/17 10: 27; Admin Dose 400 MG; Start 01/05/17 at 09:00 Memantine (Namenda) 10 mg BID PO Last administered on 01/12/17 10:28; Admin Dose 10 MG; Start 01/04/17 at 21:00 Multivitamins Therapeutic (Theragran) 1 tab DAILY PO Last administered on 10:28; Admin Dose 1 TAB; Start 01/05/17 at 09:00 Pantoprazole (Protonix Tab) 40 mg DAILY@06 PO Last administered on 01/12/17 05: 12; Admin Dose 40 MG; Start 01/05/17 at 06:00 Paroxetine HCl (Paxil) 20 mg DAILY PO Last administered on 01/12/17 10:28; Admin Dose 20 MG; Start 01/05/17 at 09:00 Risperidone (Risperdal) 1 mg QAM PO Last administered on 01/12/17 10:28; Admin Dose 1 MG; Start 01/05/17 at 09:00 Enoxaparin Sodium (Lovenox) 40 mg DAILY SC Last administered on 01/12/17 10:33 ; Admin Dose 40 MG; Start 01/05/17 at 09:00 Miscellaneous Information 1 ea NOTE XX ; Start 01/04/17 at 17:30 Glucose (Glutose) 15 gm Q15M PRN PO DECREASED GLUCOSE; Start 01/04/17 at 17:30 Glucose (Glutose) 22.5 gm Q15M PRN PO DECREASED GLUCOSE; Start 01/04/17 at 17: 30 Dextrose (D50w Syringe) 25 ml Q15M PRN IV DECREASED GLUCOSE; Start 01/04/17 at 17:30 Dextrose (D50w Syringe) 50 ml Q15M PRN IV DECREASED GLUCOSE; Start 01/04/17 at 17:30 Glucagon (Glucagen) 1 mg Q15M PRN IM DECREASED GLUCOSE; Start 01/04/17 at 17:30 Glucose (Glutose) 15 gm Q15M PRN BUCCAL DECREASED GLUCOSE; Start 01/04/17 at 17 :30 Risperidone (Risperdal) 2 mg HS PO Last administered on 01/11/17 21:04; Admin Dose 2 MG; Start 01/04/17 at 21:00 Amlodipine Besylate (Norvasc) 10 mg DAILY PO Last administered on 01/12/17 10: 28; Admin Dose 10 MG; Start 01/04/17 at 18:00 Ibuprofen (Motrin) 400 mg Q8H PRN PO PAIN Last administered on 01/07/17 15:44; Admin Dose 400 MG; Start 01/06/17 at 15:00 Acetaminophen/ Hydrocodone Bitart ([place] (10)) 1 tab Q6H PRN PO PAIN LEVEL 6-10 Last administered on 01/12/17 10:42; Admin Dose 1 TAB; Start 01/06/17 at 12: 00 IV Flush (NS 10 ml) 10 ml PRN PRN IV IV PROTOCOL; Start 01/06/17 at 13:30 Diagnostic Test (Pha) (Accu-Chek) 1 ea 02 XX Last administered on 01/12/17 02: 25; Admin Dose 1 EA; Start 01/08/17 at 02:00 Insulin Glargine 10 unit 10 unit QHS SC Last administered on 01/11/17 21:09; Admin Dose 10 UNIT; Start 01/07/17 at 21:00 Ceftriaxone Sodium 50 ml @ 100 mls/hr Q24H IVPB Last administered on 01/11/17 16:35; Admin Dose 100 MLS/HR; Start 01/11/17 at 15:00 Sodium Chloride (1/2 NS) 1,000 ml @ 75 mls/hr [id number] IV ; Start 01/12/17 at 14: 00 RICA YOUNGBLOOD Jan 12, 2017 13:58
[2017-01-12] MEDS: SOD CHLORIDE 0.45% 1,000 ML IV SCH (14:36)
[2017-01-12 14:38] VITALS: BP 112/79; PULSE 68; RESP 18
[2017-01-12] MEDS: CEFTRIAXONE 2 GM/50 ML (PMX) 50 ML IVPB SCH (16:25)
--- NOTE | 2017-01-12 18:51 | PN ---
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 Unfortunately, as the patient has advanced dementia, schizophrenia, and has been nonambulatory and bedbound, it limits our vascular interventions. Should her 2nd toe gangrene worsen or develop sepsis as a result will likely require a major amputation. -Left 2nd toe gangrene is dry and stable for now, will continue to monitor progress -Optimize vascular status (BP meds, diet, nutrition, exercise, sugar control, antiplatelet). -Discussed findings, plan, and management with the primary service. We will arrange a family discussion. -Thank you for allowing us to partake in the care of your patient. Please call with any questions. Problems: Subjective 24 Hr Interval Summary no new vascular events overnight Exam/Review of Systems Vital Signs Vitals Vital Signs Date Time Temp Pulse Resp B/P Pulse Ox O2 Delivery O2 Flow Rate FiO2 01/12/17 14:38 98.6 68 18 112/79 97 Room Air Intake and Output 01/11/17 01/11/17 01/12/17 15:00 23:00 07:00 Intake Total 570 ml 300 ml Balance 570 ml 300 ml Exam Free Text/Dictation GENERAL: The patient is awake, however, not oriented to time and place, no apparent distress. PULMONARY: Clear to auscultation bilaterally CARDIOVASCULAR: S1, S2 present. ABDOMEN: Soft, nontender, nondistended. Bowel sounds positive. EXTREMITIES: RIGHT LOWER EXTREMITY: Palpable femoral pulse, nonpalpable pedal pulse. Motor , sensory intact. Cap refill 3 to 4 seconds. No significant contracture identified. LEFT LOWER EXTREMITY: Palpable femoral pulse, nonpalpable pedal pulse. Motor, sensory limited as the patient does not follow commands well. Knee contracture , not significant. Second toe gangrene. Tender upon palpation, some surrounding erythema. Dependent rubor of the forefoot. Results Result Diagram: 01/12/1742401/12/17424 ANIBAL TERRELL MD Jan 12, 2017 18:51
[2017-01-12 20:14] VITALS: BP 152/69; RESP 20
[2017-01-12] MEDS: INSULIN GLARGINE [LANtus] 3 ML PEN SC SCH (21:02)
[2017-01-13] MEDS: ACCU-CHEK XX SCH (02:00)
[2017-01-13] MEDS: SOD CHLORIDE 0.45% 1,000 ML IV SCH ×2 (03:40→15:30)
[2017-01-13] MEDS: PANTOPRAZOLE (EC) 40 MG TAB PO SCH (05:26)
[2017-01-13 05:42] LABS: ADD SCAN DIFF NO
[2017-01-13 05:48] LABS: ABNORMAL IP MESSAGE 1; BASOPHIL # 0.1 10^3/ul (0.0-0.1); BASOPHILS % 0.5 % (0.0-2.0); EOSINOPHILS # 0.2 10^3/ul (0.0-0.5); EOSINOPHILS % 1.7 % (0.0-7.0); HEMATOCRIT 25.9 % (37.0-47.0); HEMOGLOBIN 8.7 g/dl (12.0-16.0); LYMPHOCYTES # 2.1 10^3/ul (0.8-2.9); LYMPHOCYTES % 15.9 % (15.0-51.0); MEAN CORPUSCULAR HEMOGLOBIN 31.8 pg (29.0-33.0); MEAN CORPUSCULAR HGB CONC 33.6 g/dl (32.0-37.0); MEAN CORPUSCULAR VOLUME 94.5 fl (82.0-101.0); MONOCYTE # 1.9 10^3/ul (0.3-0.9); MONOCYTES % 14.3 % (0.0-11.0); NEUTROPHIL # 8.8 10^3/ul (1.6-7.5); NEUTROPHILS % 67.1 % (39.0-77.0); PLATELET COUNT 321 10^3/UL (140-415); RED BLOOD COUNT 2.74 10^6/ul (4.20-5.40); RED CELL DISTRIBUTION WIDTH 13.1 % (11.5-14.5); WHITE BLOOD COUNT 13.1 10^3/ul (4.8-10.8)
[2017-01-13 06:05] LABS: CALCIUM 9.8 mg/dl (8.4-10.2); CREATININE 0.87 mg/dl (0.44-1.00); POTASSIUM 3.6 mmol/L (3.5-5.1)
[2017-01-13 08:40] VITALS: BP 199/88; RESP 20
[2017-01-13] MEDS: INSULIN ASPART [NOVOLOG] 3 ML PEN SC SCH ×3 (09:34→18:36)
[2017-01-13] MEDS: PAROXETINE 20 MG TAB PO SCH (09:36)
[2017-01-13] MEDS: MEMANTINE 10 MG TAB PO SCH (09:36)
[2017-01-13] MEDS: ASPIRIN (EC) 81 MG TAB PO SCH (09:36)
[2017-01-13] MEDS: ENOXAPARIN 40 MG/0.4 ML SYG SC SCH (09:36)
[2017-01-13] MEDS: CHOLECALCIFEROL 1,000 UNIT TAB PO SCH (09:36)
[2017-01-13] MEDS: MULTIVITAMINS THERAPEUTIC TAB PO SCH (09:36)
[2017-01-13] MEDS: MAGNESIUM OXIDE 400 MG TAB PO SCH (09:36)
[2017-01-13] MEDS: DOCUSATE SODIUM 100 MG CAP PO SCH (09:37)
[2017-01-13] MEDS: RISPERIDONE 1 MG TAB PO SCH (09:37)
[2017-01-13] MEDS: AMLODIPINE 10 MG TAB PO SCH (09:38)
[2017-01-13] MEDS: CEFTRIAXONE 2 GM/50 ML (PMX) 50 ML IVPB SCH (14:20)
--- NOTE | 2017-01-13 14:24 | PDOCDIS ---
Discharge Instructions CONDITION Patient Condition: Stable HOME CARE INSTRUCTIONS: Special Diet: carbohydrate controlled diet ACTIVITY: Activity Restrictions: Slowly Increase Activity RICA YOUNGBLOOD Jan 13, 2017 14:24
[2017-01-13] MEDS ORDERED: hydrALAzine 20 MG INJ IV ONE ×2 (14:30→16:30)
--- NOTE | 2017-01-13 14:58 | DS ---
DATE OF ADMISSION: 01/04/2017 DATE OF DISCHARGE: 01/13/2017 HOSPITAL COURSE: A 71-year-old female originally admitted on 01/04/2017, being discharged to [facility] on 01/13/2017. The patient came in initially with history of dementia and type 2 diabetes. She has a history of left toe ulcer, brought in for left toe ulcer and needed placement. She underwent a consult by vascular surgery team. They performed an MRI which was negative for os teomyelitis. She also had abdominal angiography performed that showed some severe narrowing at the origin of the right renal artery, some dense circumferential atherosclerotic calcifications identifi ed in the bilateral internal and external iliac arteries, as well as the arteries of the thighs and calves, mild to moderate narrowing of the right popliteal artery with good 1-vessel uninterrupted ru noff to the right ankle from the peroneal artery, short segment moderate narrowing of the mid left p opliteal artery with 1-vessel uninterrupted runoff to the left ankle from the peroneal artery. Calc ifications and attenuation of the contrast bolus in the left anterior and posterior tibial arteries limit evaluation, although there is a complete occlusion due to calcifications in the distal left po sterior tibial artery. In any event, the patient was medically managed for these conditions. There was also bilateral lower extremity venous mapping performed as well. Again, the MRI of the foot wa s negative for osteomyelitis. The patient had a second toe gangrene as a diagnosis, which was dry a nd stable. They optimized the patient vascular status including appropriate blood pressure treatmen t, appropriate diet treatment and nutrition as well as sugar control. So there were no surgical ope rations performed. The patient was also diagnosed with UTI. She was placed on IV antibiotics for that. Also continue d on her insulin regimens for her diabetes. She has a mild tachycardia as well as, likely thought t o be secondary to UTI that improved. She was back at her baseline status, although she had some edward ts of agitation, but this was decreased by the last 48 to 72 hours by the time of discharge. She wi ll be discharged to a longterm facility today in improved condition. DISCHARGE MEDICATIONS: She will be sent with the following medications: 1. [place] 10/325 q.6h. p.r.n. 2. Tylenol 650 p.o. q.6h. p.r.n. 3. Norvasc 10 mg daily. 4. Aspirin 81 mg daily. 5. Dulcolax 10 mg per rectal daily p.r.n. 6. Rocephin 2 grams IV daily for 5 more days. 7. Vitamin D 1000 units daily. 8. Colace 100 mg daily. 9. Lovenox 40 mg daily. 10. Ibuprofen 400 mg q.8h. p.r.n. 11. Aspart moderate insulin sliding scale with meals. 12. Lantus 10 units at bedtime. 13. Milk of magnesia 30 mL daily p.r.n. 14. Magnesium oxide 400 mg daily. 15. Namenda 10 mg b.i.d. 16. Multivitamin 1 tab daily. 17. Protonix 40 mg daily. 18. Paxil 20 mg daily. 19. Risperdal 1 mg p.o. q.a.m. and 2 mg at night. FOLLOWUP: She needs to follow up with primary care doctor in clinic in the next 1 to 2 weeks. FINAL DIAGNOSES: 1. 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 2. Type 2 diabetes, on insulin. Of note, A1c is 7.2. 3. Urinary tract infection. 4. Tachycardia, resolved. 5. History of dementia with history of agitation, now on antipsychotic medications. 6. History of schizophrenia. Time spent discharging patient 45 minutes. Dictated By: RICA LEAL Conf#: [id number] DID#: [id number]
[2017-01-13 15:15] VITALS: BP 142/67; PULSE 122
[2017-01-13] MEDS ORDERED: METOPROLOL 25 MG TAB PO ONE (15:30)
[2017-01-13] MEDS ORDERED: LORAZEPAM 2 MG INJ IV ONE (16:00)
[2017-01-13 16:04] VITALS: BP 185/78; PULSE 114
[2017-01-13 17:09] VITALS: BP 127/58; PULSE 95; RESP 18
[2017-01-13 19:30] VITALS: BP 130/57; PULSE 101; RESP 17
[2017-01-13] MEDS: IBUPROFEN 400 MG TAB PO PRN (20:48)
== END 2017-01-13 20:50 | DRG 300 ==
LOC: E/R 07:15 → MS1 13:51
PROVIDERS: ADMIT Internal Medicine; ATTEND Internal Medicine
PROC: 02H633Z Insertion of Infusion Device into Right Atrium, Percutaneous Approach (ICD-10-PCS; principal; 2017-01-06)
DX: I70.245 Atherosclerosis of native arteries of left leg with ulceration of other part of foot (principal); N39.0 Urinary tract infection, site not specified; F03.90 Unspecified dementia, unspecified severity, without behavioral disturbance, psychotic disturbance, mood disturbance, and anxiety; E11.9 Type 2 diabetes mellitus without complications; Z87.891 Personal history of nicotine dependence; I10 Essential (primary) hypertension; Z74.01 Bed confinement status; R32 Unspecified urinary incontinence; Z79.84 Long term (current) use of oral hypoglycemic drugs; L97.529 Non-pressure chronic ulcer of other part of left foot with unspecified severity; I70.201 Unspecified atherosclerosis of native arteries of extremities, right leg; F20.9 Schizophrenia, unspecified
CPT/HCPCS: 36415; 36569; 71010; 73718; 75635; 76937; 80048; 80053; 81001; 82607; 82962; 83036; 84443; 85025; 85610; 85730; 87081; 93922; 93970; 96372; 96374; 96375; 96376; 97110; 97162; 97530; J0360; J1170; J1650; J1815; J1885; J2060; J2405; Q9967